=== PATIENT | male | born 1980 | race Caucasian/White ===

== ENCOUNTER 2022-03-02 22:09 | Inpatient (IN) | payer MEDICARE ==
[~2022-03-02] VITALS: Ht 170.2 cm; Wt 84.9 kg
--- NOTE | 2022-03-02 22:09 | NUR ---
Patient [facility]IB [facility]. Per report patient was found on the floor only responding to painful stimuli
[2022-03-02] MEDS ORDERED: ETOMIDATE 20 MG/10 ML VIAL IV ONE (22:45)
[2022-03-02] MEDS ORDERED: ROCURONIUM BROMIDE 100 MG in IV NORMAL SALINE 90 ML IV PRN (22:45)
[2022-03-02] MEDS ORDERED: DIVA-78 PO (22:50)
[2022-03-02] MEDS ORDERED: TERA10CA4 PO (22:50)
[2022-03-02] MEDS ORDERED: ATOR10TA PO (22:50)
[2022-03-02] MEDS ORDERED: LEVE500T20 PO (22:50)
[2022-03-02] MEDS ORDERED: PHEN100C4 PO (22:50)
[2022-03-02 23:06] LABS: HEMATOCRIT 45.9 % (36.7-47.1); MEAN CORPUSCULAR HEMOGLOBIN 30.7 uug (23.8-33.4); MEAN CORPUSCULAR VOLUME 87.9 fL (73.0-96.2); PLATELET COUNT (AUTO) 223 K/uL (152-348)
[2022-03-02 23:13] LABS: ETHANOL < 3 MG/DL (0-0)
[2022-03-02 23:15] LABS: CARBON DIOXIDE 28 mmol/L (21-32); CHLORIDE 106 mmol/L (98-107); CREATININE 0.8 mg/dL (0.6-1.3); GLUCOSE 111 mg/dL (74-106); POTASSIUM 3.1 mmol/L (3.5-5.1); UREA NITROGEN, BLOOD 13 mg/dL (7-18)
[2022-03-02 23:22] LABS: ALANINE AMINOTRANSFERASE 29 U/L (16-63); ALKALINE PHOSPHATASE 89 U/L (50-136); ASPARTATE AMINOTRANSFERASE 12 U/L (15-37); BILIRUBIN,DIRECT 0.1 mg/dL (0.0-0.2); BILIRUBIN,TOTAL 0.2 mg/dL (0.2-1.0); TOTAL PROTEIN, SERUM 6.8 g/dL (6.4-8.2)
[2022-03-02 23:23] LABS: ACETAMINOPHEN < 2.0 ug/mL (10-30)
[2022-03-02 23:24] LABS: CREATINE KINASE, TOTAL 194 U/L (39-308)
--- NOTE | 2022-03-02 23:24 | NUR ---
Patient taken to CT
[2022-03-02 23:26] LABS: THYROID STIMULATING HORMONE 0.418 mIU/mL (0.358-3.740)
[2022-03-02] MEDS ORDERED: PROPOFOL 100 ML ONE (23:47)
[2022-03-03] VITALS (20 sets, daily range): BP systolic 84–130; BP diastolic 50–89
[2022-03-03] LABS: *BILIRUBIN,URIN NEGATIVE (NEGATIVE); *BLOOD, URINE NEGATIVE (NEGATIVE); *CLARITY,URINE CLEAR (CLEAR); *COLOR,URINE YELLOW (YELLOW); *KETONES,URINE TRACE (NEGATIVE); *UROBILINOGEN,URINE 0.2 E.U./dl (NORMAL); LEUKOCYTE ESTERASE ,URINE NEGATIVE (NEGATIVE); NITRITE, URINE NEGATIVE (NEGATIVE); PH,URINE 7.5 (5.0-8.0); UGLUCOSE NEGATIVE (NEGATIVE)
[2022-03-03 00:13] LABS: *AMPHETAMINE, URINE NEGATIVE (NEGATIVE); *CANNABINOID, URINE NEGATIVE (NEGATIVE); *COCCAINE, URINE NEGATIVE (NEGATIVE); *OPIATE, URINE NEGATIVE (NEGATIVE); *PHENCYCLIDINE SCREEN,URINE NEGATIVE (NEGATIVE)
--- NOTE | 2022-03-03 00:25 | NUR ---
patient will be admitted to CCU bed [address] Logan Edmondson
[2022-03-03] MEDS ORDERED: MAGNESIUM SULFATE 2 GM in IV DEXTROSE 5% 100 ML IV ONE (00:45)
[2022-03-03] MEDS ORDERED: MAGNESIUM SULFATE/D5W 200 ML ONE (00:51)
[2022-03-03 01:50] LABS: ABG BASE EXCESS 0.7 mmol/L; ABG HCO3 22.4 mmol/L; ABG PCO2 28.7 mmHg (35.0-45.0); ABG SITE LEFT RADIAL; ABG TOTAL HEMOGLOBIN 15.9 G/dL (13.5-18.0); COHb 0.1 % (0.5-1.5); MetHb 0.4 % (0.0-1.5); O2Hb 95.1 % (94.0-97.0); VENT MODE VENT - A/C; VT, ABG 550 mL
[2022-03-03] MEDS ORDERED: levETIRAcetam IV 500 MG in IV DEXTROSE 5% 100 ML IV ONE (02:00)
[2022-03-03] MEDS ORDERED: ONDANSETRON 4 MG/2 ML VIAL IV PRN (02:00)
[2022-03-03] MEDS ORDERED: ACETAMINOPHEN 650 MG/20.3 ML LIQUID UDC NG PRN (02:00)
[2022-03-03] MEDS ORDERED: LACTULOSE 20 G/30 ML LIQUID UDC NG SCH (02:00)
[2022-03-03 02:13] LABS: ABG BASE EXCESS -0.6 mmol/L; ABG PCO2 27.7 mmHg (35.0-45.0); ABG PH 7.497 (7.350-7.450); ABG PO2 150.2 mmHg (75.0-100.0); ABG SITE RIGHT RADIAL; ABG TOTAL HEMOGLOBIN 16.8 G/dL (13.5-18.0); MetHb 0.4 % (0.0-1.5); O2Hb 98.7 % (94.0-97.0); VENT MODE VENT - A/C; VT, ABG 550 mL
[2022-03-03] MEDS: POTASSIUM CHLORIDE 50 ML IV SCH ×3 (02:37→06:04)
--- NOTE | 2022-03-03 02:58 | NUR ---
report given to Bridgette QUIROS
--- NOTE | 2022-03-03 04:33 | NUR ---
Pt. admitted to CCU bed 4 , under care of Dr. Logan Edmondson Belongs List completed Bridgette RN and Yareli RN aware of patient's arrival
--- NOTE | 2022-03-03 04:35 | NUR ---
Patient in from ER. via gurney accompanied by ER. rn. pt. transfer to ICU HR of 54-60, sbp of 125/86, rr 18. Patient noted to restless and with jerky movements, opening eyes and does not follow commands. Propofol running at 15mcg/kg/min titrated for proper sedation.On ventilator A/C of 14, TV 550, and FIO2 of 50%, Peep +5. Neck immobilizer at bedside. IV line to right and left thumb patent and at this moment the last bag of KCL running.
--- NOTE | 2022-03-03 05:00 | NUR ---
Admitting N.P. notified of pt's arrival to the unit and that multiple attempts to establish a better IV access have failed. Orders for picc line placement received. Will endorse if needed.
--- NOTE | 2022-03-03 05:03 | NUR ---
PATIENT WAS INTUBATED AT [address] REDDY WITH SIZE 8.0 ETT AND SECURED AT 24CM LIP. VENT SETTINGS AC 18 VT 550 PEEP +5 100% FiO2. ABG WAS DONE AND RELAYED TO MD WITH NEW ORDER AC 14 VT 550 PEEP +5 50%FiO2. PATIENT WAS THEN TRANSFERRED TO CCU BED 04. WILL CONTINUE TO MONITOR
[2022-03-03] MEDS ORDERED: [UNRECOGNIZED DRUG - REMARK] XX PRN (06:15)
[2022-03-03] MEDS: ENOXAPARIN SODIUM 40 MG/0.4 ML DISP.SYRIN SQ SCH (06:16)
[2022-03-03] MEDS: IV D5 1/2 NS 1000 ML 1,000 ML IV PRN ×2 (06:24→20:07)
[2022-03-03] MEDS ORDERED: levETIRAcetam 500 MG/5 ML VIAL IV ONE (06:30)
[2022-03-03 06:45] LABS: HEMATOCRIT 44.8 % (36.7-47.1); MEAN CORPUSCULAR HEMOGLOBIN 31.3 uug (23.8-33.4); MEAN CORPUSCULAR VOLUME 87.7 fL (73.0-96.2); PLATELET COUNT (AUTO) 198 K/uL (152-348)
[2022-03-03 07:00] LABS: CREATININE 0.7 mg/dL (0.6-1.3); MAGNESIUM 2.6 mg/dL (1.8-2.4); POTASSIUM 3.7 mmol/L (3.5-5.1)
[2022-03-03] MEDS: PROPOFOL 100 ML IV PRN ×4 (07:54→22:23)
[2022-03-03] MEDS ORDERED: DIVALPROEX 500 MG TABLET.DR PO SCH (09:00)
[2022-03-03] MEDS ORDERED: levETIRAcetam 500 MG TABLET PO SCH (09:00)
[2022-03-03] MEDS ORDERED: PHENYTOIN SODIUM EXTENDED 100 MG CAPSULE.SA PO SCH (09:00)
[2022-03-03] MEDS: LACTULOSE 20 G/30 ML LIQUID UDC GT SCH ×3 (09:25→16:46)
[2022-03-03] MEDS: PANTOPRAZOLE ORAL SUSPENSION 40 MG SUSPDR.PKT GT SCH (09:25)
[2022-03-03] MEDS: PHENYTOIN 100 MG/4 ML UDC GT SCH ×2 (09:26→16:47)
[2022-03-03] MEDS: VALPROIC ACID 250 MG/5 ML LIQUID UDC GT SCH ×2 (09:26→12:37)
[2022-03-03] MEDS: levETIRAcetam 500 MG/5 ML LIQUID UDC GT SCH ×4 (09:26→20:06)
[2022-03-03] MEDS: REMEDY ESSENTIAL ZINC PASTE 113 GM TP PRN (09:29)
[2022-03-03] MEDS: LEVOCARNITINE 330 MG TABLET NG SCH ×2 (13:45→16:49)
[2022-03-03] MEDS ORDERED: BENZ1TAB7 PO (16:23)
[2022-03-03] MEDS ORDERED: QUET25TA PO (16:23)
[2022-03-03] MEDS: ACETAMINOPHEN 650 MG/20.3 ML LIQUID UDC GT PRN ×2 (16:47→23:30)
[2022-03-03] MEDS ORDERED: BUMETANIDE INJ 4 MG in IV DEXTROSE 5% 34 ML IV ONE ×2 (17:00→18:00)
[2022-03-03] MEDS ORDERED: VALPROIC ACID 250 MG/5 ML LIQUID UDC GT SCH (17:00)
[2022-03-03] MEDS ORDERED: DEXTROSE 5% IV ONE (18:00)
[2022-03-03] MEDS ORDERED: BUMETANIDE IV ONE (18:00)
--- NOTE | 2022-03-03 18:27 | NUR ---
Patient underwent EEG today, insertion of IJ line followed up by chest xray. Results called to Dr. Nesbitt and notified him of low urine output, and patient is to receive bumex IV drip at this time. Dr. Millan saw patient and new orders received for keppra increase and depakote discontinuation. Patient unable to tolerate vent settings with fio2 of 30% and was increased to 35%.
--- NOTE | 2022-03-03 19:00 | NUR ---
Received report. Patient is sedated, responsive to painful stimuli, gag and cough reflex noted. NSR on the monitor, HR 80, BP 128/87. ET 8, LL23 hooked to vent with settings of AC 14, TV 500, PEEP 5, FiO2 35%. Oral suctioning done every 2 hours. Turn and repositioned every 2 hours. NG tube intact, patent and clamped. IV L thumb 18G, R thumb 20G SL patent and flushed, R IJ TLC with ongoing Propofol @25mcg/kg/min, D5 1/2NS@75mls/hr. Downs catheter draining well to gravity. Will continue to monitor closely.
[2022-03-03] MEDS: ATORVASTATIN 10 MG TABLET GT SCH (20:06)
[2022-03-03] MEDS: TERAZOSIN 5 MG CAPSULE PO SCH (20:06)
--- NOTE | 2022-03-03 20:24 | NUR ---
Asael Osorio called, report given.
--- NOTE | 2022-03-03 21:35 | NUR ---
PATIENT ON CONT MICHELLE VENT WITH 8.0 ET/TUBE IN PLACE AND SECURED WITH ANCHOR FAST, AND ROTATE Q2 HOURS, SUCTIONED LIGHT PALE YELL TINGE SECRETIONS, AND SUCTION MOUTH WITH YANKAUER, PT IS SEDATED, CURRENT VENT SETTINGS, A/C 14, VT 500ML, PEEP5, FIO2 @ 30%, PT WITH MOSTLY CONTROLLED VENTILATION, CHECK BALLOON ON ET/TUBE, NO VENT CHANGES MADE.Felix BOYKIN RCP Addendum: 03/03/22 at 2138 by VERENA BOYKIN RT Amended: Links added.
[2022-03-04] VITALS (24 sets, daily range): BP systolic 105–139; BP diastolic 71–86
--- NOTE | 2022-03-04 02:00 | NUR ---
AM care done. Linen changed.
[2022-03-04] MEDS: PROPOFOL 100 ML IV PRN ×4 (05:05→21:45)
[2022-03-04 05:27] LABS: HEMATOCRIT 42.9 % (36.7-47.1); MEAN CORPUSCULAR HEMOGLOBIN 30.7 uug (23.8-33.4); MEAN CORPUSCULAR VOLUME 87.8 fL (73.0-96.2); PLATELET COUNT (AUTO) 199 K/uL (152-348)
[2022-03-04 05:50] LABS: ABG BASE EXCESS -0.1 mmol/L; ABG HCO3 22.2 mmol/L; ABG PCO2 30.3 mmHg (35.0-45.0); ABG PH 7.482 (7.350-7.450); ABG PO2 89.2 mmHg (75.0-100.0); ABG SITE LEFT RADIAL; COHb 0.3 % (0.5-1.5); MetHb 0.3 % (0.0-1.5); O2Hb 96.9 % (94.0-97.0); VENT MODE VENT - A/C; VT, ABG 500 mL
[2022-03-04 06:01] LABS: BILIRUBIN,TOTAL 0.6 mg/dL (0.2-1.0); CREATININE 0.9 mg/dL (0.6-1.3); MAGNESIUM 1.8 mg/dL (1.8-2.4); POTASSIUM 3.1 mmol/L (3.5-5.1); TOTAL PROTEIN, SERUM 6.5 g/dL (6.4-8.2)
[2022-03-04] MEDS: PHENYTOIN 100 MG/4 ML UDC GT SCH ×2 (08:34→16:46)
[2022-03-04] MEDS: levETIRAcetam 500 MG/5 ML LIQUID UDC GT SCH ×2 (08:34→21:38)
[2022-03-04] MEDS: LACTULOSE 20 G/30 ML LIQUID UDC GT SCH ×3 (08:34→16:46)
[2022-03-04] MEDS: LEVOCARNITINE 330 MG TABLET NG SCH ×3 (08:35→16:46)
[2022-03-04] MEDS: PANTOPRAZOLE ORAL SUSPENSION 40 MG SUSPDR.PKT GT SCH (08:35)
[2022-03-04] MEDS: ENOXAPARIN SODIUM 40 MG/0.4 ML DISP.SYRIN SQ SCH (08:35)
[2022-03-04] MEDS ORDERED: POTASSIUM CHLORIDE 20 MEQ POWDER PACKET GT ONE (09:30)
[2022-03-04] MEDS ORDERED: BUMETANIDE 1 MG/4 ML VIAL IV ONE (09:45)
[2022-03-04] MEDS: POTASSIUM CHLORIDE 50 ML IV SCH ×4 (09:51→12:25)
[2022-03-04] MEDS: IV D5 1/2 NS 1000 ML 1,000 ML IV PRN ×2 (09:54→23:50)
[2022-03-04] MEDS ORDERED: POTASSIUM CHLORIDE 20 MEQ TAB.PRT.SR PO SCH (12:00)
[2022-03-04 12:53] LABS: ABG BASE EXCESS 4.5 mmol/L; ABG HCO3 28.2 mmol/L; ABG PH 7.477 (7.350-7.450); ABG PO2 61.7 mmHg (75.0-100.0); ABG SITE RIGHT RADIAL; COHb 0.6 % (0.5-1.5); MetHb 0.2 % (0.0-1.5); O2Hb 92.7 % (94.0-97.0); VENT MODE VENT - CPAP
[2022-03-04] MEDS ORDERED: SUCCINYLCHOLINE CHLORIDE 200 MG/10 ML VIAL MC ONE (13:12)
[2022-03-04] MEDS ORDERED: ETOMIDATE 20 MG/10 ML VIAL MC ONE (13:12)
[2022-03-04] MEDS ORDERED: ROCURONIUM BROMIDE 50 MG/5 ML VIAL IV ONE (13:12)
--- NOTE | 2022-03-04 19:01 | NUR ---
Patient not alert enough during weaning trial to extubate. Patient tolerated bath and continues to be on A/C mode on the ventilator with diprivan 35mcg/kg/min.
[2022-03-04] MEDS ORDERED: FLEET ENEMA 133 ML BOTTLE RC ONE (21:00)
--- NOTE | 2022-03-04 21:31 | NUR ---
called nursing mailhouse operator patient needs to be started on Osmolite tube feeding .
--- NOTE | 2022-03-04 21:37 | NUR ---
fleet enema given no bm only gas . will continue to monitor bm.
[2022-03-04] MEDS: TERAZOSIN 5 MG CAPSULE PO SCH (21:38)
[2022-03-04] MEDS: ATORVASTATIN 10 MG TABLET GT SCH (21:39)
[2022-03-04] MEDS: OSMOLITE 1.2 CAL 1,000 ML LIQUID GT PRN (21:42)
--- NOTE | 2022-03-04 21:42 | NUR ---
started Osmolite tf at 30 ml/hr via the NGT to increase as tolerated goal of 60 ml/hr .
--- NOTE | 2022-03-04 22:00 | NUR ---
notice patient moving bilateral lower and upper extremities ,at times noted left arm reaching to tube increase propofol drip see emar .
[2022-03-05] VITALS (25 sets, daily range): BP systolic 115–130; BP diastolic 68–85
--- NOTE | 2022-03-05 | NUR ---
AM care done. Filomena espinoza. Addendum: 03/06/22 at 0143 by Lanie Mondragon RN Wrong date and time.
--- NOTE | 2022-03-05 | NUR ---
tolerating tube feedings increase to 40 ml/hr ,flushed with water.
--- NOTE | 2022-03-05 00:13 | NUR ---
PATIENT ON CONT MICHELLE VENT WITH 8.0 ET/TUBE IN PLACE AND SECURED, WITH ANCHOR FAST, MOVE ET/TUBE Q2 HOURS, SETTINGS ,A/C 14, 500ML, PEEP5, FIO2 @ 30%, PT DOES ASSIST AT TIMES, SUCTIONED LIGHT PALE YELL TINGE SECRETIONS, AND SUCTION MOUTH WITH YANKAUER, TOLL WELL, CHANGE HME, ALL VENT ALARMS GOOD, NO VENT CHANGES MADE. Felix BOYKIN RCP Addendum: 03/05/22 at 0016 by VERENA BOYKIN RT Amended: Links added.
--- NOTE | 2022-03-05 01:10 | NUR ---
transported patient to cat scan via bed with heart monitor ,xray flight readiness technician and respiratory therapist .patient tolerated test .
[2022-03-05] MEDS: PROPOFOL 100 ML IV PRN ×5 (02:46→21:42)
--- NOTE | 2022-03-05 07:45 | NUR ---
patient had a large yellowish liquid stool ,with angiography nurse changed soiled linens and gown,turned and reposition patient . offloaded back with pillows .
[2022-03-05 08:12] LABS: HEMATOCRIT 39.6 % (36.7-47.1); MEAN CORPUSCULAR HEMOGLOBIN 31.3 uug (23.8-33.4); MEAN CORPUSCULAR VOLUME 87.9 fL (73.0-96.2); PLATELET COUNT (AUTO) 156 K/uL (152-348)
[2022-03-05 08:20] LABS: CREATININE 0.7 mg/dL (0.6-1.3); MAGNESIUM 1.8 mg/dL (1.8-2.4); PHOSPHOROUS 3.6 mg/dL (2.5-4.9); POTASSIUM 3.1 mmol/L (3.5-5.1)
[2022-03-05] MEDS: PHENYTOIN 100 MG/4 ML UDC GT SCH ×2 (08:20→16:22)
[2022-03-05] MEDS: levETIRAcetam 500 MG/5 ML LIQUID UDC GT SCH ×2 (08:20→20:03)
[2022-03-05] MEDS: LACTULOSE 20 G/30 ML LIQUID UDC GT SCH ×3 (08:20→16:23)
[2022-03-05] MEDS: LEVOCARNITINE 330 MG TABLET NG SCH ×2 (08:21→12:06)
[2022-03-05] MEDS: BENZTROPINE MESYLATE 1 MG TABLET PO SCH ×2 (08:22→16:20)
[2022-03-05] MEDS: QUETIAPINE FUMARATE 25 MG TABLET PO SCH ×4 (08:23→20:03)
[2022-03-05] MEDS: PANTOPRAZOLE ORAL SUSPENSION 40 MG SUSPDR.PKT GT SCH (08:23)
[2022-03-05] MEDS: ENOXAPARIN SODIUM 40 MG/0.4 ML DISP.SYRIN SQ SCH (08:24)
[2022-03-05] MEDS: OSMOLITE 1.2 CAL 1,000 ML LIQUID GT PRN (08:30)
--- NOTE | 2022-03-05 08:43 | NUR ---
tolerating tube feedings Osmolite at 40ml/hr now increase to 50 ml/hr goal of 60 ml/hr . hob up aspiration precaution observed .
[2022-03-05] MEDS ORDERED: VALPROIC ACID 250 MG/5 ML LIQUID UDC GT SCH (09:00)
[2022-03-05] MEDS ORDERED: POTASSIUM CHLORIDE 20 MEQ POWDER PACKET GT ONE (09:15)
--- NOTE | 2022-03-05 09:54 | NUR ---
potassium 3.1 L ,given potassium 40 radha via the ngt .
--- NOTE | 2022-03-05 10:00 | NUR ---
DR ERNST CAME PULMONARY MD ,updated md with patient condition ,v/s ,vent settings ,with orders for cta and abg .
[2022-03-05] MEDS ORDERED: PIPERACILLIN SODIUM/TAZOBACTAM 3.375 G in IV DEXTROSE 5% 50 ML IV SCH (10:15)
--- NOTE | 2022-03-05 10:42 | NUR ---
called patients conservator and spoked with jhony shah .cats can questioner answered and consent obtained signed with another RN .
[2022-03-05] MEDS: MEROPENEM 1 G in IV NORMAL SALINE 100 ML IV SCH ×2 (11:19→19:59)
[2022-03-05 11:37] LABS: ABG BASE EXCESS 4.4 mmol/L; ABG PCO2 38.2 mmHg (35.0-45.0); ABG PH 7.483 (7.350-7.450); ABG PO2 121.6 mmHg (75.0-100.0); ABG SITE LEFT RADIAL; ABG TOTAL HEMOGLOBIN 14.5 G/dL (13.5-18.0); COHb 0.7 % (0.5-1.5); MetHb 0.2 % (0.0-1.5); O2Hb 97.9 % (94.0-97.0); VENT MODE VENT - A/C; VT, ABG 500 mL
[2022-03-05] MEDS: IV D5 1/2 NS 1000 ML 1,000 ML IV PRN (11:49)
--- NOTE | 2022-03-05 12:30 | NUR ---
KIKA TANNER CAME AND SAW PATIENT .
[2022-03-05] MEDS ORDERED: IV NORMAL SALINE 250 ML IV ONE (12:52)
[2022-03-05] MEDS ORDERED: SWABABLE VALVE TRANSFER SET EA MC ONE (12:52)
[2022-03-05] MEDS ORDERED: IOHEXOL 350 100 ML INFUS..BTL ONE (12:52)
[2022-03-05] MEDS: POTASSIUM CHLORIDE 50 ML IV SCH ×2 (13:54→14:26)
--- NOTE | 2022-03-05 14:30 | NUR ---
changed soiled linens and gown patient had large liquid yellowish stool .
--- NOTE | 2022-03-05 19:00 | NUR ---
Received report. Patient is sedated with Propofol @45mcg/kg/min, grimacing noted upon suctioning, ET 8, LL 23, vent settings AC 14, TV 500, PEEP 5, FiO2 30%, O2 sat 97%. Suctioning and oral care done every 2 hours. NSR on the monitor, HR 89, BP 120/77. NG TF Osmolite @60mls/hr, no gastric residual noted. IV RIJ TLC patent and flushed with ongoing D5 1/2 NS @75mls/hr. Downs catheter draining well to gravity. Will continue to monitor closely.
[2022-03-05] MEDS: ATORVASTATIN 10 MG TABLET GT SCH (20:01)
[2022-03-05] MEDS: TERAZOSIN 5 MG CAPSULE PO SCH (20:02)
[2022-03-05] MEDS: ACETAMINOPHEN 650 MG/20.3 ML LIQUID UDC GT PRN (20:05)
--- NOTE | 2022-03-05 21:08 | NUR ---
Christy Osorio called, report given.
[2022-03-06] VITALS (23 sets, daily range): BP systolic 93–134; BP diastolic 41–80
--- NOTE | 2022-03-06 | NUR ---
AM care done and linen changed.
[2022-03-06] MEDS: PROPOFOL 100 ML IV PRN ×6 (01:32→21:22)
--- NOTE | 2022-03-06 01:55 | NUR ---
SEDATION VACATION NOTES 0155 Turned off Propofol. After 5 mins, patient slowly opened his eyes. VS HR 104, BP 123/80 O2 sat 93%, RR 20. No labored breathing noted. NAD. After 10 mins, patient is able to see and hear this repairer typewriter's voice by nodding his head. After 15 mins, tracking of eyes noted. After 20 mins, patient is able to move his BUE and clenched fist. After 30 mins, grimacing and yawning noted, VS HR 104, BP 116/68, O2 sat 92% RR 19. No labored breathing noted. NAD. Turned back on Propofol @50mcg/kg/min. Will continue to monitor closely.
[2022-03-06] MEDS: OSMOLITE 1.2 CAL 1,000 ML LIQUID GT PRN (03:09)
[2022-03-06] MEDS: ACETAMINOPHEN 650 MG/20.3 ML LIQUID UDC GT PRN (03:47)
[2022-03-06] MEDS: MEROPENEM 1 G in IV NORMAL SALINE 100 ML IV SCH ×3 (03:51→19:42)
[2022-03-06 05:04] LABS: HEMATOCRIT 36.4 % (36.7-47.1); MEAN CORPUSCULAR VOLUME 87.2 fL (73.0-96.2); PLATELET COUNT (AUTO) 160 K/uL (152-348)
[2022-03-06 05:51] LABS: CREATININE 0.7 mg/dL (0.6-1.3); MAGNESIUM 1.7 mg/dL (1.8-2.4); PHOSPHOROUS 3.1 mg/dL (2.5-4.9)
--- NOTE | 2022-03-06 08:00 | NUR ---
Transported patient from CCU 3 to ER 1A via hospital bed, attached to transport air sampling and monitoring, accompanied by 3 staff members, without any incident. VSS. VELAZQUEZ.
[2022-03-06] MEDS ORDERED: ENOXAPARIN SODIUM 40 MG/0.4 ML DISP.SYRIN SQ ONE (09:14)
[2022-03-06] MEDS ORDERED: LACTULOSE 20 G/30 ML LIQUID UDC ONE ×3 (09:14→16:23)
[2022-03-06] MEDS ORDERED: BENZTROPINE MESYLATE 0.5 MG TABLET ONE ×2 (09:14→16:23)
[2022-03-06] MEDS ORDERED: QUETIAPINE FUMARATE 25 MG TABLET ONE ×4 (09:15→20:01)
[2022-03-06] MEDS ORDERED: PROPOFOL 100 ML ONE ×4 (09:54→21:01)
[2022-03-06] MEDS: LACTULOSE 20 G/30 ML LIQUID UDC GT SCH ×3 (09:58→16:29)
[2022-03-06] MEDS: PHENYTOIN 100 MG/4 ML UDC GT SCH ×2 (09:58→17:41)
[2022-03-06] MEDS: QUETIAPINE FUMARATE 25 MG TABLET PO SCH ×4 (09:59→20:28)
[2022-03-06] MEDS: ENOXAPARIN SODIUM 40 MG/0.4 ML DISP.SYRIN SQ SCH (10:00)
[2022-03-06] MEDS: BENZTROPINE MESYLATE 1 MG TABLET PO SCH ×2 (10:04→16:33)
[2022-03-06] MEDS: levETIRAcetam 500 MG/5 ML LIQUID UDC GT SCH ×2 (10:20→20:28)
[2022-03-06] MEDS: PANTOPRAZOLE ORAL SUSPENSION 40 MG SUSPDR.PKT GT SCH (10:36)
[2022-03-06] MEDS: REMEDY ESSENTIAL ZINC PASTE 113 GM TP PRN (10:36)
[2022-03-06] MEDS: IV D5 1/2 NS 1000 ML 1,000 ML IV PRN (10:42)
[2022-03-06] MEDS ORDERED: MAGNESIUM OXIDE 400 MG TABLET GT ONE (11:00)
[2022-03-06] MEDS ORDERED: MAGNESIUM OXIDE 400 MG TABLET ONE (11:43)
[2022-03-06] MEDS: POTASSIUM CHLORIDE 20 MEQ POWDER PACKET GT SCH ×3 (11:44→16:29)
[2022-03-06] MEDS ORDERED: POTASSIUM CHLORIDE 20 MEQ POWDER PACKET ONE ×3 (11:44→16:23)
--- NOTE | 2022-03-06 18:18 | NUR ---
0821am: 1st contact with patient: patient came from 2nd floor-CCU to ER department secondary to CCU staffing issues. ER nursing staff will take care of this patient for the meantime. Patient is sedated, orally intubated connected to ventilator, current ventilator parameter: AC, rate=14/min, tidal mlsxsb=546, FiO2=30%, PEEP=5. Patient is afebrile, skin warm & dry. Moderate amount of oral secretions seen. Suctioned accordingly. 1240pm: Bureau Director@bedside. 1604pm: SHIRA Swartz is here in ER.
[2022-03-06] MEDS ORDERED: TERAZOSIN 5 MG CAPSULE ONE (20:01)
[2022-03-06] MEDS: ATORVASTATIN 10 MG TABLET GT SCH (20:26)
[2022-03-06] MEDS: TERAZOSIN 5 MG CAPSULE PO SCH (20:28)
--- NOTE | 2022-03-06 23:00 | NUR ---
Calm and relax, sedated. Propofol drip decreased to 40 mcg/kg/miin. Closely monitored.
[2022-03-07] VITALS (24 sets, daily range): BP systolic 92–114; BP diastolic 50–75
[2022-03-07] MEDS ORDERED: PROPOFOL 100 ML ONE ×5 (00:47→16:57)
[2022-03-07] MEDS: PROPOFOL 100 ML IV PRN ×6 (00:48→23:46)
--- NOTE | 2022-03-07 03:00 | NUR ---
Pt awake and agitated, safety precaution maintained. Diprivan drip titrated for sedation.
[2022-03-07] MEDS: MEROPENEM 1 G in IV NORMAL SALINE 100 ML IV SCH ×3 (03:50→20:49)
[2022-03-07] MEDS: IV D5 1/2 NS 1000 ML 1,000 ML IV PRN (04:37)
[2022-03-07 06:05] LABS: HEMATOCRIT 37.1 % (36.7-47.1); MEAN CORPUSCULAR HEMOGLOBIN 31.3 uug (23.8-33.4); MEAN CORPUSCULAR VOLUME 90.3 fL (73.0-96.2); PLATELET COUNT (AUTO) 150 K/uL (152-348)
--- NOTE | 2022-03-07 07:30 | NUR ---
received report on pt, AMS, intubated and sedated, propofol running at 50, TV:500, AC:14, FiO2: 30%, Peep 5, moves upper extremities, opens eyes spontaneously, no tracking, NG tube in R nare, feeding osmolite 1.2 at goal of 60cc.
[2022-03-07] MEDS ORDERED: QUETIAPINE FUMARATE 25 MG TABLET ONE ×3 (08:49→16:58)
[2022-03-07] MEDS ORDERED: LACTULOSE 20 G/30 ML LIQUID UDC ONE ×3 (08:49→16:57)
[2022-03-07] MEDS ORDERED: ENOXAPARIN SODIUM 40 MG/0.4 ML DISP.SYRIN SQ ONE (08:49)
[2022-03-07] MEDS: QUETIAPINE FUMARATE 25 MG TABLET PO SCH ×4 (09:13→20:55)
[2022-03-07] MEDS: PHENYTOIN 100 MG/4 ML UDC GT SCH ×2 (09:13→17:24)
[2022-03-07] MEDS: PANTOPRAZOLE ORAL SUSPENSION 40 MG SUSPDR.PKT GT SCH (09:13)
[2022-03-07] MEDS: BENZTROPINE MESYLATE 1 MG TABLET PO SCH ×2 (09:13→17:24)
[2022-03-07] MEDS: LACTULOSE 20 G/30 ML LIQUID UDC GT SCH ×3 (09:13→17:24)
[2022-03-07] MEDS: OSMOLITE 1.2 CAL 1,000 ML LIQUID GT PRN (09:14)
[2022-03-07] MEDS: levETIRAcetam 500 MG/5 ML LIQUID UDC GT SCH ×2 (09:14→20:53)
[2022-03-07] MEDS: ENOXAPARIN SODIUM 40 MG/0.4 ML DISP.SYRIN SQ SCH (09:16)
[2022-03-07] MEDS ORDERED: MORPHINE SULFATE 2 MG/1 ML DISP.SYRIN ONE (11:57)
[2022-03-07] MEDS: MORPHINE SULFATE 2 MG/1 ML DISP.SYRIN IV PRN (11:58)
--- NOTE | 2022-03-07 14:35 | NUR ---
RECEIVED STABLE ON CURRENT VENT SETTING. SATURATION RUNS FROM 95 TO 99 %. SUCTIONED NEEDED AND MOVED EE TUBE TO MID CENTER. NO CHANGES ORDERED AT THIS TIME.
[2022-03-07 14:50] LABS: CARBON DIOXIDE 28 mmol/L (21-32); CHLORIDE 103 mmol/L (98-107); CREATININE 0.5 mg/dL (0.6-1.3); GLUCOSE 99 mg/dL (74-106); MAGNESIUM 1.8 mg/dL (1.8-2.4); PHOSPHOROUS 3.5 mg/dL (2.5-4.9); POTASSIUM 3.4 mmol/L (3.5-5.1); TRIGLYCERIDES 152 MG/DL (30-150); UREA NITROGEN, BLOOD 11 mg/dL (7-18)
--- NOTE | 2022-03-07 18:00 | NUR ---
pt transfered to ICU floor with RT, House Sup, and RN.
--- NOTE | 2022-03-07 19:41 | NUR ---
Pt agitated propofol drip ongoing, safety precaution maitained. Will monitor condition closely.
[2022-03-07] MEDS ORDERED: MEROPENEM 1GM/NS 100ML IVPB **ER PYXIS ONLY IV ONE (20:44)
[2022-03-07] MEDS: ATORVASTATIN 10 MG TABLET GT SCH (20:53)
[2022-03-07] MEDS: TERAZOSIN 5 MG CAPSULE PO SCH (20:56)
[2022-03-07] MEDS ORDERED: MEROPENEM 1 G VIAL IV ONE (22:49)
[2022-03-08] VITALS (24 sets, daily range): BP systolic 95–122; BP diastolic 48–74
[2022-03-08] MEDS: IV D5 1/2 NS 1000 ML 1,000 ML IV PRN ×2 (00:59→17:26)
[2022-03-08] MEDS: MEROPENEM 1 G in IV NORMAL SALINE 100 ML IV SCH ×3 (03:06→20:25)
[2022-03-08] MEDS: PROPOFOL 100 ML IV PRN ×6 (03:25→22:29)
--- NOTE | 2022-03-08 07:10 | NUR ---
Received pt. on ventilator ETT 8 23LL, A/C 14, Tv 500, FIO2 30%, and Peep+5. with saturation of 92%. on propofol running at 50mcg/kg/min patient opening eyes spontaneously and does not follow commands. Cardiac-mandel on NSR sbp within desired limits. NG with feeding to be resumed and placement confirmed by auscultation. Downs to gravity. RIJ TLc patent. Will continue to monitor.
--- NOTE | 2022-03-08 07:15 | NUR ---
Pulmonary services Dr. Trejo in the unit and at this time as ordered, propofol turn off completely for weaning trial; with MD at bedside pt. became tachypneic with breathing rate mid to upper 30's. restless, agitated and not following commands. after 15-20 minutes orders to resume propofol at the same rate for proper sedation. vitals stable HR in the upper 90-110. sbp within desire limits. Will continue to monitor.
[2022-03-08 07:28] LABS: CARBON DIOXIDE 26 mmol/L (21-32); CHLORIDE 102 mmol/L (98-107); CREATININE 0.5 mg/dL (0.6-1.3); GLUCOSE 100 mg/dL (74-106); MAGNESIUM 1.9 mg/dL (1.8-2.4); PHOSPHOROUS 3.3 mg/dL (2.5-4.9); UREA NITROGEN, BLOOD 8 mg/dL (7-18)
--- NOTE | 2022-03-08 07:33 | NUR ---
Patient received on cont kate vent with given settings of AC RR 14, Vt 500, PEEP +5, 30% Fio2. Oral care done and prn sxn provided. Alarms on and audible. No changes made at this time. Will continue to monitor throughout shift.
[2022-03-08] MEDS: PANTOPRAZOLE ORAL SUSPENSION 40 MG SUSPDR.PKT GT SCH (08:00)
[2022-03-08] MEDS: QUETIAPINE FUMARATE 25 MG TABLET PO SCH ×4 (08:00→20:28)
[2022-03-08] MEDS: LACTULOSE 20 G/30 ML LIQUID UDC GT SCH ×3 (08:00→17:06)
[2022-03-08] MEDS: ENOXAPARIN SODIUM 40 MG/0.4 ML DISP.SYRIN SQ SCH (08:01)
[2022-03-08] MEDS: BENZTROPINE MESYLATE 1 MG TABLET PO SCH ×2 (08:02→17:07)
[2022-03-08] MEDS: PHENYTOIN 100 MG/4 ML UDC GT SCH ×2 (08:03→17:07)
[2022-03-08] MEDS: levETIRAcetam 500 MG/5 ML LIQUID UDC GT SCH ×2 (08:04→20:25)
[2022-03-08] MEDS: LORAZEPAM 2 MG/1 ML VIAL IV PRN (08:14)
[2022-03-08] MEDS: OSMOLITE 1.2 CAL 1,000 ML LIQUID GT PRN (08:22)
[2022-03-08 09:07] LABS: MEAN CORPUSCULAR HEMOGLOBIN 31.2 uug (23.8-33.4); MEAN CORPUSCULAR VOLUME 87.9 fL (73.0-96.2); PLATELET COUNT (AUTO) 227 K/uL (152-348)
[2022-03-08] MEDS: ACETAMINOPHEN 650 MG/20.3 ML LIQUID UDC GT PRN (12:19)
--- NOTE | 2022-03-08 20:00 | NUR ---
patient in be orally intubated ac 14/500/30% +5 peep tolerating vent setting saturation 100% rr 24, patient sedated on propofol drip . failed sedation vacation this am . suction via ett and via oral minimal secretions thin to thick whitish in color . TF in progress Osmolite 1.2 at 60 ml/hr tolerating tube feedings no residual.flexiseal inplaced with yellowish brownish liquid stool .continue to monitor level of sedation and v/s .
[2022-03-08] MEDS: ATORVASTATIN 10 MG TABLET GT SCH (20:25)
[2022-03-08] MEDS: TERAZOSIN 5 MG CAPSULE PO SCH (20:25)
--- NOTE | 2022-03-08 20:45 | NUR ---
due medication given crushed medication and given via ngt ,flushed ngt with water aspiration precaution observed .hob up .
--- NOTE | 2022-03-08 22:30 | NUR ---
turned and reposition patient, patient noted opening eyes spontaneously on and off able to moved bilateral upper and lower extremities slow and weak .patient doesn't follow commands continue with propofol for sedation .on and off advised patient to put his hands down and not to pull or removed ett tube.
[2022-03-09] VITALS (24 sets, daily range): BP systolic 94–115; BP diastolic 48–68
--- NOTE | 2022-03-09 01:00 | NUR ---
suction patient via ett and via mouth .oral care done .applied Vaseline to upper and lower lips area .
[2022-03-09] MEDS: PROPOFOL 100 ML IV PRN ×7 (01:01→22:06)
[2022-03-09] MEDS: REMEDY ESSENTIAL ZINC PASTE 113 GM TP PRN (03:30)
--- NOTE | 2022-03-09 03:30 | NUR ---
bath patient and changed soiled linens and gown ,applied z guard to bilateral groin and sacral area ,placed mepiles to sacral area . turned and reposition patient ,elevated bue and ble with pillows heels off bed .scds used . hob up .
[2022-03-09] MEDS: MEROPENEM 1 G in IV NORMAL SALINE 100 ML IV SCH ×3 (04:07→20:15)
--- NOTE | 2022-03-09 04:15 | NUR ---
senior program analyst at b/s for patients am labs .
[2022-03-09 05:53] LABS: HEMATOCRIT 38.4 % (36.7-47.1); MEAN CORPUSCULAR HEMOGLOBIN 31.4 uug (23.8-33.4); MEAN CORPUSCULAR VOLUME 88.2 fL (73.0-96.2); PLATELET COUNT (AUTO) 258 K/uL (152-348)
--- NOTE | 2022-03-09 06:00 | NUR ---
changed flexiseal bag ,patient had liquid stool total of 400 ml.
[2022-03-09 06:01] LABS: CARBON DIOXIDE 30 mmol/L (21-32); CHLORIDE 102 mmol/L (98-107); CREATININE 0.5 mg/dL (0.6-1.3); GLUCOSE 102 mg/dL (74-106); PHOSPHOROUS 3.4 mg/dL (2.5-4.9); POTASSIUM 3.7 mmol/L (3.5-5.1); UREA NITROGEN, BLOOD 7 mg/dL (7-18)
[2022-03-09] MEDS: IV D5 1/2 NS 1000 ML 1,000 ML IV PRN ×2 (06:25→17:19)
--- NOTE | 2022-03-09 07:00 | NUR ---
Received pt. on ventilator A/c14, Tv500 Peep +5, FIO2 30%. no tachypnea adequately sedated. Cardiac-mandel pt. on NSR with sbp within desired limits no support of vasopressors. NG-T with placement confirmed and feeding to be resumed as ordered. Downs to gravity IV line patent. Rectal tube in place.
--- NOTE | 2022-03-09 07:56 | NUR ---
RECEIVED PT ON ORDERED VENT SETTINGS. ORAL CARE DONE. SX AND CHANGED HME.
[2022-03-09] MEDS: PHENYTOIN 100 MG/4 ML UDC GT SCH ×2 (08:03→16:56)
[2022-03-09] MEDS: LACTULOSE 20 G/30 ML LIQUID UDC GT SCH ×3 (08:03→16:55)
[2022-03-09] MEDS: PANTOPRAZOLE ORAL SUSPENSION 40 MG SUSPDR.PKT GT SCH (08:03)
[2022-03-09] MEDS: BENZTROPINE MESYLATE 1 MG TABLET PO SCH ×2 (08:03→16:57)
[2022-03-09] MEDS: QUETIAPINE FUMARATE 25 MG TABLET PO SCH ×4 (08:03→20:19)
[2022-03-09] MEDS: ENOXAPARIN SODIUM 40 MG/0.4 ML DISP.SYRIN SQ SCH (08:04)
[2022-03-09] MEDS: levETIRAcetam 500 MG/5 ML LIQUID UDC GT SCH ×2 (08:04→20:15)
[2022-03-09] MEDS: OSMOLITE 1.2 CAL 1,000 ML LIQUID GT PRN (08:19)
[2022-03-09 09:47] LABS: BILIRUBIN,DIRECT 0.1 mg/dL (0.0-0.2); BILIRUBIN,TOTAL 0.2 mg/dL (0.2-1.0); TOTAL PROTEIN, SERUM 7.1 g/dL (6.4-8.2)
--- NOTE | 2022-03-09 11:25 | NUR ---
Attending physician Dr. Bro, in the unit to see and examine pt. report given orders to continue with care plan received.
--- NOTE | 2022-03-09 11:36 | NUR ---
A call from Ms. Gustafsonnica pt's conservator at this time she was updated on pt's current condition and was informed of care plan.
[2022-03-09] MEDS: LORAZEPAM 2 MG/1 ML VIAL IV PRN (14:11)
--- NOTE | 2022-03-09 18:55 | NUR ---
Left patient on ventilator with no changes throughout shift saturation above 94%. Neuro-mandel sedated with episodes, of restlessness coughing. Hemodynamically stable, on NSR with sbp within desired limits. NG-T patent with feeding running at goal therapy flexi-seal in place draining watery stool. IV line patent no s/s of complications. No pressure sore areas Will endorse to incoming shift.
--- NOTE | 2022-03-09 20:00 | NUR ---
vented ETT 8.0 /23 vent setting ac 14/500/30% peep of 5 ,suction mild very light thin secretions orally and via ett .hob up and aspiration precaution observed . propofol for sedation for cpap in am at 0600. tf in progress Osmolite at 60 ml/hr via the NGT .FLEXISEAL in placed with liquid stool .
[2022-03-09] MEDS: ATORVASTATIN 10 MG TABLET GT SCH (20:15)
--- NOTE | 2022-03-09 20:15 | NUR ---
crushed medication and medication given via the NGT , flushed with water .
[2022-03-09] MEDS: TERAZOSIN 5 MG CAPSULE PO SCH (20:17)
--- NOTE | 2022-03-09 21:20 | NUR ---
patient sister called and updated with patient condition . informed about our visiting hours .patient sister verbalized that her and her mom will be visiting patient tomorrow sometime at noon .
--- NOTE | 2022-03-09 21:30 | NUR ---
turned and reposition patient off loaded back with pillows bue and ble extremities elevated with pillows . patient on KCI bed and scds used to bilateral heels .
--- NOTE | 2022-03-09 23:55 | NUR ---
PATIENT ON CONT MICHELLE VENT WITH 8.0 ET/TUBE IN PLACED AND SECURED, WITH ANCHOR FAST , ROTATE Q2 HOURS, WITH CURRENT VENT SETTINGS, A/C 14, 500ML, PEEP5, FIO2 @ 30%, NO VENT CHANGES MADE, SUCTIONED VERY LIGHT TINGE SECRETIONS, AND SUCTION MOUTH WITH YANKAUER, CHANGE HME, ALL VENT ALARMS GOOD; TRIAL ON CPAP MODE @ 06:00. Felix BOYKIN RCP Addendum: 03/09/22 at 2357 by VERENA BOYKIN RT Amended: Links added.
[2022-03-10] VITALS (23 sets, daily range): BP systolic 91–118; BP diastolic 49–75
[2022-03-10] MEDS: PROPOFOL 100 ML IV PRN ×8 (01:26→23:27)
--- NOTE | 2022-03-10 03:30 | NUR ---
bath patient ,irrigated rectal tube ,changed soiled linens and gown .Downs care done .oral care done .
[2022-03-10] MEDS: MEROPENEM 1 G in IV NORMAL SALINE 100 ML IV SCH ×3 (04:19→20:14)
[2022-03-10 05:21] LABS: MEAN CORPUSCULAR HEMOGLOBIN 31.5 uug (23.8-33.4); MEAN CORPUSCULAR VOLUME 87.7 fL (73.0-96.2); PLATELET COUNT (AUTO) 244 K/uL (152-348)
[2022-03-10 05:40] LABS: ALANINE AMINOTRANSFERASE 66 U/L (16-63); ALKALINE PHOSPHATASE 113 U/L (50-136); ASPARTATE AMINOTRANSFERASE 36 U/L (15-37); BILIRUBIN,TOTAL 0.1 mg/dL (0.2-1.0); CARBON DIOXIDE 30 mmol/L (21-32); CHLORIDE 103 mmol/L (98-107); CREATININE 0.5 mg/dL (0.6-1.3); GLUCOSE 100 mg/dL (74-106); MAGNESIUM 1.9 mg/dL (1.8-2.4); PHOSPHOROUS 3.2 mg/dL (2.5-4.9); POTASSIUM 3.8 mmol/L (3.5-5.1); TOTAL PROTEIN, SERUM 6.1 g/dL (6.4-8.2); UREA NITROGEN, BLOOD 8 mg/dL (7-18)
--- NOTE | 2022-03-10 05:50 | NUR ---
sedation vacation done hold propofol drip ,respiratory therapist at b/s put patient on CPAP ,with in 2 minutes respiration rate went to 44 to 45 per minute vent keeps on beeping with high respiratory rate alarm ,low volume rate 150.patient squirming and thrashing in bed moved all extremities doesn't follow commands unable to educate .respiratory therapist put patient on previous vent setting .
[2022-03-10] MEDS: MORPHINE SULFATE 2 MG/1 ML DISP.SYRIN IV PRN (05:58)
--- NOTE | 2022-03-10 05:58 | NUR ---
patient still restless and agitated ,facial grimacing noted given prn morphine see emar . .
[2022-03-10] MEDS: IV D5 1/2 NS 1000 ML 1,000 ML IV PRN ×2 (06:24→17:26)
--- NOTE | 2022-03-10 06:37 | NUR ---
PT ON CPAP 8 X 2 MINS. ALREADY ALARMING HIGH RESP. RATE , PT BREATHING RR45 APPROX, PT THEN BACK TO REGULAR VENT SETTINGS, ANI Gonzalez NOTIFIED .Felix BOYKIN RCP Addendum: 03/10/22 at 0641 by VERENA BOYKIN RT Amended: Links added.
--- NOTE | 2022-03-10 07:15 | NUR ---
Received pt. on ventilator A/c14, Tv500 Peep +5, FIO2 30%. no tachypnea at this time pt. slightly restless and not following commands, on propofol at 50mcg/kg/min.. As reported pt. failed weaning trial this morning reports of low volume intake < 150 (per RT report) and tachypnea with rate in the high 30'slow 40's, trial lasted for about 2 minutes before aborting procedure and pt. placed back on A/C mode. Cardiac-mandel pt. on NSR with sbp within desired limits no vasopressors needed it. NG-T with placement confirmed and feeding to be resumed at goal therapy. Downs to gravity IV line patent. Rectal tube in place with watery stool.
--- NOTE | 2022-03-10 07:20 | NUR ---
barboza catheter bag with a total of 1700 cc clear fouzia urine emptied at 0800. Will continue to monitor.
--- NOTE | 2022-03-10 07:20 | NUR ---
CPAP trial in progress for 2nd time. after 5-10 minutes pt. become tachypneic in the low 40's. saturation remains at 95, on NSR with sbp within normal. Patient following commands with episodes of restlessness and agitation and able to node yes and no to close ended questions, and manage to let staff know He's feeling short of breath. Patient placed back ventilator A/C mode.
--- NOTE | 2022-03-10 07:35 | NUR ---
Pulmonary services, Dr. Grant in the unit report given with no new orders received. Will continue with care plan.
[2022-03-10] MEDS: QUETIAPINE FUMARATE 25 MG TABLET PO SCH ×4 (08:12→20:17)
[2022-03-10] MEDS: LACTULOSE 20 G/30 ML LIQUID UDC GT SCH ×3 (08:12→17:23)
[2022-03-10] MEDS: BENZTROPINE MESYLATE 1 MG TABLET PO SCH ×2 (08:13→17:24)
[2022-03-10] MEDS: PHENYTOIN 100 MG/4 ML UDC GT SCH ×2 (08:13→17:25)
[2022-03-10] MEDS: levETIRAcetam 500 MG/5 ML LIQUID UDC GT SCH ×2 (08:14→20:14)
[2022-03-10] MEDS: ENOXAPARIN SODIUM 40 MG/0.4 ML DISP.SYRIN SQ SCH (08:14)
[2022-03-10] MEDS: PANTOPRAZOLE ORAL SUSPENSION 40 MG SUSPDR.PKT GT SCH (08:15)
[2022-03-10] MEDS: OSMOLITE 1.2 CAL 1,000 ML LIQUID GT PRN (08:16)
[2022-03-10] MEDS: LORAZEPAM 2 MG/1 ML VIAL IV PRN ×2 (08:18→21:30)
[2022-03-10] MEDS: ACETAMINOPHEN 650 MG/20.3 ML LIQUID UDC GT PRN (08:18)
[2022-03-10] MEDS ORDERED: PROPOFOL 100 ML IV PRN (09:00)
--- NOTE | 2022-03-10 09:03 | NUR ---
PT remains restless and agitated Public Affairs Manager called and notified orders to titrate propofol above 50mcg/kg/min to achieve adequate sedation received.
--- NOTE | 2022-03-10 18:53 | NUR ---
Left patient on ventilator with no changes throughout shift saturation above 94%. Neuro-mandel adequately sedated with propofol running at 60mcg/kg/min. Hemodynamically stable, on NSR with sbp within desired limits. NG-T patent with feeding running at goal therapy flexi-seal in place draining watery stool. IV line patent no s/s of complications. No pressure sore areas Will endorse to incoming shift.
[2022-03-10] MEDS ORDERED: IV NORMAL SALINE 250 ML IV ONE (19:34)
[2022-03-10] MEDS ORDERED: IOHEXOL 300MG/ML 100 ML INFUS..BTL ONE (19:34)
[2022-03-10] MEDS ORDERED: SWABABLE VALVE TRANSFER SET EA MC ONE (19:34)
--- NOTE | 2022-03-10 19:54 | NUR ---
called patient conservator spoked with SAMANTHA FRANKEL obtained consent for CT of the abdomen /pelvis with IV contrast questionable fluid filled structures witness by another RN
[2022-03-10] MEDS: ATORVASTATIN 10 MG TABLET GT SCH (20:14)
[2022-03-10] MEDS: TERAZOSIN 5 MG CAPSULE PO SCH (20:15)
--- NOTE | 2022-03-10 20:15 | NUR ---
went down via bed with vent for ct of the abdomen /pelvis with RN,RESPIRATORY THERAPIST AND CAT BOYER ASSOCIATE PROJECT MANAGER.
[2022-03-11] VITALS (17 sets, daily range): BP systolic 87–120; BP diastolic 45–90
[2022-03-11] MEDS: PROPOFOL 100 ML IV PRN ×2 (02:24→05:15)
--- NOTE | 2022-03-11 04:30 | NUR ---
AM CARE DONE ,IRRIGATED RECTAL TUBE (FLEXISEAL TUBE) TO KEEP IT PATENT NOTED LIQUID STOOL BROWNISH GREENISH IN COLOR .CHANGED SOILED LINENS AND GOWN .ORAL CARE DONE ,SUCTION VIA ETT AND MOUTH .
[2022-03-11] MEDS: MEROPENEM 1 G in IV NORMAL SALINE 100 ML IV SCH ×3 (04:49→20:55)
[2022-03-11 05:16] LABS: HEMATOCRIT 36.1 % (36.7-47.1); MEAN CORPUSCULAR HEMOGLOBIN 31.2 uug (23.8-33.4); MEAN CORPUSCULAR VOLUME 88.4 fL (73.0-96.2); PLATELET COUNT (AUTO) 257 K/uL (152-348)
[2022-03-11 05:24] LABS: CARBON DIOXIDE 31 mmol/L (21-32); CHLORIDE 102 mmol/L (98-107); CREATININE 0.4 mg/dL (0.6-1.3); GLUCOSE 120 mg/dL (74-106); PHOSPHOROUS 3.9 mg/dL (2.5-4.9); POTASSIUM 3.8 mmol/L (3.5-5.1); UREA NITROGEN, BLOOD 9 mg/dL (7-18)
--- NOTE | 2022-03-11 06:00 | NUR ---
REDUCED PROPOFOL DRIP TO 1/2 OF THE CURRENT RATE 30 MCG/KG/MIN ,RESPIRATORY THERAPIST STARTED PATIENT ON CPAP PSV 8 PATIENT STARTED TO BE MOVING HIS RIGHT AND LEFT HAND REACHING TO THE ETT TUBE ,IMPLEMENTED RIGHT AND LEFT SOFT MITTENS . PATIENT TOLERATING CPAP FOR NOW RR 20 SATURATION 95 %.
[2022-03-11 06:40] LABS: ABG BASE EXCESS 4.1 mmol/L; ABG HCO3 28.5 mmol/L; ABG PCO2 42.3 mmHg (35.0-45.0); ABG PH 7.447 (7.350-7.450); ABG PO2 67.6 mmHg (75.0-100.0); ABG SITE RIGHT BRACHIAL; ABG TOTAL HEMOGLOBIN 13.7 G/dL (13.5-18.0); COHb 0.3 % (0.5-1.5); CPAP,BG 8 cmH20; MetHb 0.3 % (0.0-1.5); O2Hb 93.9 % (94.0-97.0); VENT MODE CPAP
--- NOTE | 2022-03-11 06:40 | NUR ---
RESPIRATORY THERAPIST DID ABG ,WILL SHOW RESULTS TO MD ARBOLEDA .
[2022-03-11] MEDS ORDERED: DC PROPOFOL ONCE EXTUBATED XX PRN (07:45)
[2022-03-11] MEDS: levETIRAcetam 500 MG/5 ML LIQUID UDC GT SCH ×2 (09:28→20:56)
[2022-03-11] MEDS: LACTULOSE 20 G/30 ML LIQUID UDC GT SCH ×3 (09:28→17:01)
[2022-03-11] MEDS: PANTOPRAZOLE ORAL SUSPENSION 40 MG SUSPDR.PKT GT SCH (09:28)
[2022-03-11] MEDS: BENZTROPINE MESYLATE 1 MG TABLET PO SCH ×2 (09:29→17:03)
[2022-03-11] MEDS: PHENYTOIN 100 MG/4 ML UDC GT SCH ×2 (09:29→17:01)
[2022-03-11] MEDS: ENOXAPARIN SODIUM 40 MG/0.4 ML DISP.SYRIN SQ SCH (09:30)
[2022-03-11] MEDS: IV D5 1/2 NS 1000 ML 1,000 ML IV PRN (09:42)
[2022-03-11] MEDS: QUETIAPINE FUMARATE 25 MG TABLET PO SCH ×4 (09:52→21:26)
[2022-03-11] MEDS: OSMOLITE 1.2 CAL 1,000 ML LIQUID GT PRN (13:52)
--- NOTE | 2022-03-11 20:00 | NUR ---
Assume care of patient. Patient received inbed awake alert and oriented times three. Pt is os Os via nasal canula. HOB. Tolerating oxygem. No distress. Pt is in no distress.
[2022-03-11] MEDS: ATORVASTATIN 10 MG TABLET GT SCH (21:06)
[2022-03-11] MEDS: TERAZOSIN 5 MG CAPSULE PO SCH (21:07)
[2022-03-11] MEDS: ACETAMINOPHEN 650 MG/20.3 ML LIQUID UDC GT PRN (21:11)
[2022-03-12] VITALS (19 sets, daily range): BP systolic 98–129; BP diastolic 50–87
[2022-03-12] MEDS: IV D5 1/2 NS 1000 ML 1,000 ML IV PRN ×2 (02:16→18:11)
--- NOTE | 2022-03-12 04:00 | NUR ---
Bed bath given R tlc dressing. Right TLC loosened, Dressing Changed per protocol.
[2022-03-12] MEDS: MORPHINE SULFATE 2 MG/1 ML DISP.SYRIN IV PRN (05:03)
[2022-03-12] MEDS: MEROPENEM 1 G in IV NORMAL SALINE 100 ML IV SCH ×2 (05:03→11:43)
[2022-03-12 05:24] LABS: HEMATOCRIT 35.3 % (36.7-47.1); MEAN CORPUSCULAR HEMOGLOBIN 31.1 uug (23.8-33.4); MEAN CORPUSCULAR VOLUME 87.6 fL (73.0-96.2); PLATELET COUNT (AUTO) 258 K/uL (152-348)
[2022-03-12 05:33] LABS: CARBON DIOXIDE 31 mmol/L (21-32); CHLORIDE 101 mmol/L (98-107); CREATININE 0.4 mg/dL (0.6-1.3); GLUCOSE 118 mg/dL (74-106); MAGNESIUM 1.7 mg/dL (1.8-2.4); PHOSPHOROUS 3.7 mg/dL (2.5-4.9); POTASSIUM 3.7 mmol/L (3.5-5.1); UREA NITROGEN, BLOOD 10 mg/dL (7-18)
[2022-03-12 06:23] LABS: ABG BASE EXCESS 4.7 mmol/L; ABG HCO3 29.9 mmol/L; ABG PCO2 46.6 mmHg (35.0-45.0); ABG PH 7.425 (7.350-7.450); ABG SITE RIGHT RADIAL; ABG TOTAL HEMOGLOBIN 13.7 G/dL (13.5-18.0); COHb 0.4 % (0.5-1.5); MetHb 0.2 % (0.0-1.5); VENT MODE Nasal Cannula
[2022-03-12] MEDS: PANTOPRAZOLE ORAL SUSPENSION 40 MG SUSPDR.PKT GT SCH (07:20)
--- NOTE | 2022-03-12 07:30 | NUR ---
Hands off care of patient Report endorsed to morning nurse, Patient is awake alert an oriented and is in no distress.
--- NOTE | 2022-03-12 08:00 | NUR ---
Received patient awake alert and oriented x 2-3. Denies pain. On O2 5L NC. NGT in place on the right nare, tolerating feeding well. Mittens to prevent disrupting care. Right IJ in place, remains patent and intact. [facility] assessment done, no new skin issues noted. Urethral cath draining fouzia color urine. Safety initiated. Will continue to monitor.
--- NOTE | 2022-03-12 08:12 | NUR ---
pt is resting in bed. Respis even and unlabored. Released restrainte per the protocol B/L hanss edematous. Elevated on pillows. Downs cath to gravity and is draining clear yellow urine.
--- NOTE | 2022-03-12 08:15 | NUR ---
2300 Pt is awake. Resp is ulabored. Released restraints per protocol.PT is coorperative. Tolerating tubefeed. No residual.
--- NOTE | 2022-03-12 08:15 | NUR ---
Was seen by speech therapy, recommendations made- pureed, thin liquid diet. Informed MD. Will continue to monitor.
[2022-03-12] MEDS: LACTULOSE 20 G/30 ML LIQUID UDC GT SCH ×3 (10:17→18:10)
[2022-03-12] MEDS: ENOXAPARIN SODIUM 40 MG/0.4 ML DISP.SYRIN SQ SCH (10:18)
[2022-03-12] MEDS: QUETIAPINE FUMARATE 25 MG TABLET PO SCH ×4 (10:18→21:27)
[2022-03-12] MEDS: MAGNESIUM SULFATE/D5W 100 ML IV SCH ×2 (10:19→11:41)
[2022-03-12] MEDS: levETIRAcetam 500 MG/5 ML LIQUID UDC GT SCH ×2 (10:20→18:10)
[2022-03-12] MEDS: BENZTROPINE MESYLATE 1 MG TABLET PO SCH ×2 (10:20→18:10)
[2022-03-12] MEDS: PHENYTOIN 100 MG/4 ML UDC GT SCH ×2 (10:46→18:10)
--- NOTE | 2022-03-12 12:00 | NUR ---
Titrated O2 from 5L to 3L O2 sat 95%. Will continue to monitor.
--- NOTE | 2022-03-12 12:53 | NUR ---
Per MD, d/c Merrem abx, NGT and feeding. Will continue to monitor.
--- NOTE | 2022-03-12 18:45 | NUR ---
Titrated O2 to 2L NC. O2 sat is at 95%. Will continue to monitor. NGT was removed per MD order. Pt is calm and cooperating. D/C mittens and restrains. Will closely monitor.
--- NOTE | 2022-03-12 18:47 | NUR ---
Right IJ dressing changed. Tolerated it well.
[2022-03-12] MEDS: ATORVASTATIN 10 MG TABLET GT SCH (21:27)
[2022-03-12] MEDS: TERAZOSIN 5 MG CAPSULE PO SCH (21:27)
[2022-03-13] VITALS (14 sets, daily range): BP systolic 100–137; BP diastolic 60–85
[2022-03-13 04:57] LABS: HEMATOCRIT 37.7 % (36.7-47.1); MEAN CORPUSCULAR HEMOGLOBIN 30.9 uug (23.8-33.4); MEAN CORPUSCULAR VOLUME 87.3 fL (73.0-96.2); PLATELET COUNT (AUTO) 289 K/uL (152-348)
[2022-03-13 05:19] LABS: CARBON DIOXIDE 32 mmol/L (21-32); CHLORIDE 99 mmol/L (98-107); CREATININE 0.5 mg/dL (0.6-1.3); GLUCOSE 111 mg/dL (74-106); MAGNESIUM 1.9 mg/dL (1.8-2.4); PHOSPHOROUS 3.9 mg/dL (2.5-4.9); POTASSIUM 4.1 mmol/L (3.5-5.1); UREA NITROGEN, BLOOD 12 mg/dL (7-18)
--- NOTE | 2022-03-13 07:00 | NUR ---
Received pt. on 1 liter NC saturation above 94%, no tachypnea. AAOx2. follows commands, intermittently. sbp within desired limits. barboza to gravity. IV RIJ patent. Will continue to monitor.
[2022-03-13] MEDS: LACTULOSE 20 G/30 ML LIQUID UDC GT SCH ×3 (08:26→17:12)
[2022-03-13] MEDS: PANTOPRAZOLE ORAL SUSPENSION 40 MG SUSPDR.PKT GT SCH (08:26)
[2022-03-13] MEDS: QUETIAPINE FUMARATE 25 MG TABLET PO SCH ×4 (08:26→21:25)
[2022-03-13] MEDS: PHENYTOIN 100 MG/4 ML UDC GT SCH ×2 (08:27→17:12)
[2022-03-13] MEDS: BENZTROPINE MESYLATE 1 MG TABLET PO SCH ×2 (08:30→17:13)
[2022-03-13] MEDS: levETIRAcetam 500 MG/5 ML LIQUID UDC GT SCH (08:30)
[2022-03-13] MEDS: ENOXAPARIN SODIUM 40 MG/0.4 ML DISP.SYRIN SQ SCH (08:35)
[2022-03-13] MEDS: IV D5 1/2 NS 1000 ML 1,000 ML IV PRN (08:38)
--- NOTE | 2022-03-13 08:45 | NUR ---
Pt/ attempting to get out of bed unsupervised, this time found with feet dangling off the bed. Pt. educated on safety measures, at this time follow commands and easily redirected.
--- NOTE | 2022-03-13 10:55 | NUR ---
Attending Dr. Dieudonne Mendoza in the unit to see and examine pt. report given orders received and implemented.
--- NOTE | 2022-03-13 11:45 | NUR ---
Patient slightly restless and found with feet dangling off bed stack in between bed rails. Patient reposition in bed and comfort and safety measures implemented. patient easily redirected and for now back in bed.
--- NOTE | 2022-03-13 14:00 | NUR ---
ID physician Dr. Williamson in to examine and follow up on pt.
--- NOTE | 2022-03-13 14:20 | NUR ---
Pt's conservator in the unit to visit pt.
--- NOTE | 2022-03-13 16:55 | NUR ---
pt. remains attempting getting off bed unsupervised for safety 1step-mattress removed and scd's removed as well. Patient on/off attempting to get out of bed un-supervised.
--- NOTE | 2022-03-13 19:05 | NUR ---
Patient becoming increasingly distress continuously attempting to get out of bed unsupervised. Nursing supervisor cytogenetic laboratory day shift notified and aware of pt's potential need of a sitter once pt. transfer, as informed information will be endorse to incoming supervisor cytogenetic laboratory. Will continue to monitor.
--- NOTE | 2022-03-13 21:00 | NUR ---
patient incontinent of loose ,watery stool patient on lactulose .cleaned with soap and water changed soiled linens and gown .patient able to help in turning and repositioning . patient able to follow command.alert and awake .
--- NOTE | 2022-03-13 21:15 | NUR ---
due medication given and patient took medication with water.
[2022-03-13] MEDS: TERAZOSIN 5 MG CAPSULE PO SCH (21:23)
[2022-03-13] MEDS: ATORVASTATIN 10 MG TABLET GT SCH (21:24)
[2022-03-13] MEDS: levETIRAcetam 500 MG TABLET GT SCH (21:25)
--- NOTE | 2022-03-13 23:51 | NUR ---
pt is awake in bed awake calling for nurse, BIPAP IN PLACE ORDERED. O2SAT 99. PLEASE SEE NURSING FLOW RECORD. PATEINT REQUESTED SUCTIONING POINTING TO SUCTION CATHETER, REMOVE NAVA RO SUCFTION WITH UDE OF NASAL CANULA. PT TOLERATES MOUTHCARE PT ASKED TO REMOVE BIPAP. RT CALLED. PT MAINTAINED O2SAT 99 . MITTEN RESTRAINT RIGHT HAND. PATIR=ENT REASSURED.
[2022-03-14] VITALS: BP 132/81
--- NOTE | 2022-03-14 00:01 | NUR ---
afebrile temp 98.0 orally . patient in bed watching tv.
--- NOTE | 2022-03-14 00:30 | NUR ---
patient had another bm loose large amt ,changed soiled linens and gown . advised patient to call for help call light placed with in reach .
--- NOTE | 2022-03-14 01:56 | NUR ---
bed exit alarm was alarming found patient standing at the side of the bed ,advised patient to go back to bed and to call and used the call wheeler if he wants something needs reorientation and frequent education . bed alarm on at all times .
[2022-03-14] MEDS: MORPHINE SULFATE 2 MG/1 ML DISP.SYRIN IV PRN (02:18)
--- NOTE | 2022-03-14 02:21 | NUR ---
patient verbalized pain when asked unable to say where and unable to described levels of pain .given prn morphine for pain . see emar.
--- NOTE | 2022-03-14 03:30 | NUR ---
bath patient ,changed soiled linens and gown .barboza care done and oral care done .
--- NOTE | 2022-03-14 04:30 | NUR ---
am labs collected done via the right triple lumen central line . all ports patent and flused with normal saline q used .
--- NOTE | 2022-03-14 05:00 | NUR ---
patient had portable chest xray done by techician at [facility].
[2022-03-14 05:45] LABS: HEMATOCRIT 36.9 % (36.7-47.1); MEAN CORPUSCULAR HEMOGLOBIN 30.8 uug (23.8-33.4); MEAN CORPUSCULAR VOLUME 87.4 fL (73.0-96.2); PLATELET COUNT (AUTO) 299 K/uL (152-348)
[2022-03-14 05:49] VITALS: BP 115/76
[2022-03-14 06:23] LABS: ALANINE AMINOTRANSFERASE 218 U/L (16-63); ALKALINE PHOSPHATASE 128 U/L (50-136); ASPARTATE AMINOTRANSFERASE 130 U/L (15-37); BILIRUBIN,TOTAL 0.2 mg/dL (0.2-1.0); CARBON DIOXIDE 30 mmol/L (21-32); CHLORIDE 102 mmol/L (98-107); CREATININE 0.5 mg/dL (0.6-1.3); GLUCOSE 94 mg/dL (74-106); MAGNESIUM 1.9 mg/dL (1.8-2.4); PHOSPHOROUS 4.1 mg/dL (2.5-4.9); POTASSIUM 3.7 mmol/L (3.5-5.1); TOTAL PROTEIN, SERUM 6.5 g/dL (6.4-8.2); UREA NITROGEN, BLOOD 18 mg/dL (7-18)
[2022-03-14 08:00] VITALS: BP 114/88
[2022-03-14] MEDS: BENZTROPINE MESYLATE 1 MG TABLET PO SCH ×2 (08:35→17:10)
[2022-03-14] MEDS: LACTULOSE 20 G/30 ML LIQUID UDC GT SCH (08:35)
[2022-03-14] MEDS: PHENYTOIN 100 MG/4 ML UDC GT SCH (08:35)
[2022-03-14] MEDS: levETIRAcetam 500 MG TABLET GT SCH (08:35)
[2022-03-14] MEDS: QUETIAPINE FUMARATE 25 MG TABLET PO SCH ×3 (08:36→20:17)
[2022-03-14] MEDS: ENOXAPARIN SODIUM 40 MG/0.4 ML DISP.SYRIN SQ SCH (08:37)
[2022-03-14] MEDS ORDERED: PANTOPRAZOLE SODIUM 40 MG TABLET.DR PO SCH (08:46)
[2022-03-14] MEDS ORDERED: QUETIAPINE FUMARATE 25 MG TABLET GT SCH (11:02)
[2022-03-14] MEDS ORDERED: BENZTROPINE MESYLATE 1 MG TABLET GT SCH (11:02)
[2022-03-14] MEDS ORDERED: TERAZOSIN 5 MG CAPSULE GT SCH (11:03)
--- NOTE | 2022-03-14 14:04 | NUR ---
Per Dr. Abreu, to change the lactulose to one dose, 20 grams, daily.
[2022-03-14] MEDS ORDERED: LACTULOSE 20 G/30 ML LIQUID UDC PO SCH (14:45)
[2022-03-14] MEDS ORDERED: ACETAMINOPHEN 650 MG/20.3 ML LIQUID UDC PO PRN (16:49)
[2022-03-14] MEDS: PHENYTOIN SODIUM EXTENDED 100 MG CAPSULE.SA PO SCH (17:23)
--- NOTE | 2022-03-14 17:23 | NUR ---
Ok to remove IJ central line and barboza catheter per Dr. Abreu.
[2022-03-14 18:00] VITALS: BP 113/72
--- NOTE | 2022-03-14 19:30 | NUR ---
received pts. in bed awake alert no respiratory distress noted tolerating 02 nasal cannula at 2 liters/min rr 20 saturation 98 to 100% .medical surgical status ,awaiting room upstairs . no s/s/ of bleeding checked right IJ post central catheter site CDI .
[2022-03-14 20:00] VITALS: BP 112/74
[2022-03-14] MEDS: levETIRAcetam 500 MG TABLET PO SCH (20:16)
[2022-03-14] MEDS: ATORVASTATIN 10 MG TABLET PO SCH (20:16)
[2022-03-14] MEDS: TERAZOSIN 5 MG CAPSULE PO SCH (20:22)
[2022-03-14] MEDS: REMEDY ESSENTIAL ZINC PASTE 113 GM TP PRN (20:28)
--- NOTE | 2022-03-14 20:35 | NUR ---
took aramis medication with water ,assisted tolerated medication .
--- NOTE | 2022-03-14 20:35 | NUR ---
dr: jamaica came and aware patient in ccu but already med/surg patient .
--- NOTE | 2022-03-14 23:00 | NUR ---
RECEIVED PATIENT VIA W/C FROM CCU. PATIENT IS ALERT TO SELF. ASSISTED TO BED, MADE COMFORTABLE. BED ALARM ON. CALL LIGHT IN REACH. ALL NEEDS ATTENDED. WILL CONTINUE TO MONITOR AND ASSESS.
[2022-03-14 23:12] VITALS: BP 100/63
--- NOTE | 2022-03-14 23:45 | NUR ---
PATIENT ASLEEP IN BED. NO RESP. DISTRESS NOTED. BED ALARM ON. CALL LIGHT IN REACH. ALL NEEDS ATTENDED.
[2022-03-15 00:03] VITALS: BP 114/73
[2022-03-15 04:40] VITALS: BP 96/61
[2022-03-15] MEDS: PANTOPRAZOLE SODIUM 40 MG TABLET.DR PO SCH (06:06)
[2022-03-15] MEDS ORDERED: PANTOPRAZOLE ORAL SUSPENSION 40 MG SUSPDR.PKT GT SCH (07:00)
--- NOTE | 2022-03-15 08:00 | NUR ---
PATIENT A&O X 2. REORIENTED PT TO PLACE. PT ON ROOM AIR WITH SAT OF 90%. DR. ARBOLEDA NOTIFIED AND IS HERE TO SEE PT. BED ALARM ON. CALL LIGHT IN REACH. SEIZURE PRECAUTIONS IMPLEMENTED. SIDE RAILS PADDED.
[2022-03-15] MEDS: LACTULOSE 20 G/30 ML LIQUID UDC PO SCH (09:00)
[2022-03-15] MEDS: PHENYTOIN SODIUM EXTENDED 100 MG CAPSULE.SA PO SCH ×2 (09:03→17:19)
[2022-03-15] MEDS: BENZTROPINE MESYLATE 1 MG TABLET PO SCH ×2 (09:05→17:20)
[2022-03-15] MEDS: levETIRAcetam 500 MG TABLET PO SCH ×2 (09:05→20:34)
[2022-03-15] MEDS: QUETIAPINE FUMARATE 25 MG TABLET PO SCH ×4 (09:05→20:34)
[2022-03-15] MEDS: ENOXAPARIN SODIUM 40 MG/0.4 ML DISP.SYRIN SQ SCH (09:06)
--- NOTE | 2022-03-15 09:30 | NUR ---
NOTICED PT SEIZING PRESENTED BY JERKING AND DROOLING FOR 1-2 MINUTES. O2 SAT WAS AT 88-90%. PROVIDED O2 AT 2 LPM/NC. ATIVAN GIVEN. NEURO ASSESSMENT DONE. PT IS STABLE. SEIZURE PRECAUTION IMPLEMENTED. KEPT PT SAFE IN BED. Addendum: 03/15/22 at 1604 by SILVANO ARROYO RN VITAL SIGNS BP 121/74, HR 96, RR 18. PT ALSO HAD RIGHT ARM FLEXED AND HYPERTONIC MUSCLES THROUGH OUT HIS BODY. NO UNCONTROLLABLE URINATION AND BM NOTED. DR. DUMAS NOTIFIED.
[2022-03-15] MEDS: LORAZEPAM 2 MG/1 ML VIAL IV PRN (09:37)
--- NOTE | 2022-03-15 11:30 | NUR ---
Patient complained of chest pain. Pt reported muscle pain increased when inhaling and relieved when exhalinng No changed on tele noted. No ectopy on tele. BP 126/53. Monitored accordingly. Call light in reach. Addendum: 03/16/22 at 1604 by IVY RODRIGUEZ RN WRONG PATIENT
[2022-03-15 12:00] VITALS: BP 112/65
[2022-03-15 16:00] VITALS: BP 105/70
[2022-03-15] MEDS: ATORVASTATIN 10 MG TABLET PO SCH (20:34)
[2022-03-15] MEDS: TERAZOSIN 5 MG CAPSULE PO SCH (20:34)
[2022-03-15 21:36] VITALS: BP 121/71
[2022-03-16 04:48] VITALS: BP 108/64
[2022-03-16] MEDS: PANTOPRAZOLE SODIUM 40 MG TABLET.DR PO SCH (06:14)
[2022-03-16 06:51] LABS: HEMATOCRIT 38.4 % (36.7-47.1); MEAN CORPUSCULAR HEMOGLOBIN 31.7 uug (23.8-33.4); MEAN CORPUSCULAR VOLUME 87.6 fL (73.0-96.2); PLATELET COUNT (AUTO) 308 K/uL (152-348)
[2022-03-16 07:03] LABS: CREATININE 0.8 mg/dL (0.6-1.3); PHOSPHOROUS 3.3 mg/dL (2.5-4.9); POTASSIUM 3.7 mmol/L (3.5-5.1)
--- NOTE | 2022-03-16 08:00 | NUR ---
AWAKE ALERT AND COHERENT ANSWERS QUESTIONS APPROPRIATELY, DENIES PAIN OR SOB. INDEPENDENT WITH MEALS. NO SS OF ASPIRATION
[2022-03-16] MEDS: LACTULOSE 20 G/30 ML LIQUID UDC PO SCH (09:00)
[2022-03-16] MEDS: BENZTROPINE MESYLATE 1 MG TABLET PO SCH ×2 (09:28→17:38)
[2022-03-16] MEDS: ENOXAPARIN SODIUM 40 MG/0.4 ML DISP.SYRIN SQ SCH (09:29)
[2022-03-16] MEDS: QUETIAPINE FUMARATE 25 MG TABLET PO SCH ×4 (09:29→22:11)
[2022-03-16] MEDS: PHENYTOIN SODIUM EXTENDED 100 MG CAPSULE.SA PO SCH ×2 (09:29→17:38)
[2022-03-16] MEDS: levETIRAcetam 500 MG TABLET PO SCH ×2 (09:29→22:11)
[2022-03-16] MEDS ORDERED: ATOR10TA PO (11:48)
[2022-03-16] MEDS ORDERED: RIFA550T PO (11:48)
[2022-03-16] MEDS ORDERED: LEVE500T9 PO (11:48)
[2022-03-16 12:00] VITALS: BP 106/72
--- NOTE | 2022-03-16 12:00 | NUR ---
NO ACUTE CHANGE FROM MORNING ASSESSMENT, CLOSELY MONITORED FOR SEIZURE
[2022-03-16 16:00] VITALS: BP 110/64
--- NOTE | 2022-03-16 18:10 | NUR ---
AWAITING PLACEMENT, NO FURTHER SEIZURE NOTED
[2022-03-16 20:00] VITALS: BP 123/86
[2022-03-16] MEDS: ATORVASTATIN 10 MG TABLET PO SCH (22:11)
[2022-03-16] MEDS: TERAZOSIN 5 MG CAPSULE PO SCH (22:12)
[2022-03-17 04:00] VITALS: BP 113/76
--- NOTE | 2022-03-17 06:01 | NUR ---
Received to care, lying in bed, pleasant upon approach. Remains seizure free. Seizure precautions maintained throughout shift. Monitored closely for safety. Assisted as needed. Call light in reach.
[2022-03-17] MEDS: PANTOPRAZOLE SODIUM 40 MG TABLET.DR PO SCH (06:23)
[2022-03-17] MEDS: LACTULOSE 20 G/30 ML LIQUID UDC PO SCH (09:35)
[2022-03-17] MEDS: BENZTROPINE MESYLATE 1 MG TABLET PO SCH ×2 (09:35→17:26)
[2022-03-17] MEDS: PHENYTOIN SODIUM EXTENDED 100 MG CAPSULE.SA PO SCH ×2 (09:35→17:26)
[2022-03-17] MEDS: levETIRAcetam 500 MG TABLET PO SCH ×2 (09:35→21:11)
[2022-03-17] MEDS: QUETIAPINE FUMARATE 25 MG TABLET PO SCH ×4 (09:35→21:12)
[2022-03-17] MEDS: ENOXAPARIN SODIUM 40 MG/0.4 ML DISP.SYRIN SQ SCH (09:37)
[2022-03-17 12:00] VITALS: BP 110/72
[2022-03-17 16:00] VITALS: BP 128/56
--- NOTE | 2022-03-17 19:30 | NUR ---
Received patient lying in bed. AAOx2 with periods of confusion and forgetfulness. Able to make needs known and follow simple direction. In no apparent distress. Denies any pain or SOB. IV site on left upper arm intact and patent. Needs assessed and attended to. Safety measure initiated and call light within reached.
--- NOTE | 2022-03-17 19:30 | NUR ---
Received patient lying in bed. Awake but confused and disoriented. In no apparent distress. No signs or symptoms if pain or SOB noted. O2 sat 94% on RA. Right upper arm midline and right FA PIV intact and patent. IVF infusing via midline. Downs catheter intact and draining via gravity. Turned and repositioned for comfort. Safety measure initiated and call light within reached. Addendum: 03/17/22 at 2201 by FLORA LICEA RN wrong patient
[2022-03-17 20:00] VITALS: BP 141/82
[2022-03-17] MEDS: TERAZOSIN 5 MG CAPSULE PO SCH (21:12)
[2022-03-17] MEDS: ATORVASTATIN 10 MG TABLET PO SCH (21:12)
[2022-03-18 04:00] VITALS: BP 128/65
--- NOTE | 2022-03-18 05:31 | NUR ---
AAOx2 with confusion and forgetfulness. In no acute distress. Due meds given and taken. Denies any pain or SOB. IV site on left upper arm intact and patent. Needs attended to and met. Safety measure maintained and call light within reached.
[2022-03-18] MEDS: PANTOPRAZOLE SODIUM 40 MG TABLET.DR PO SCH (06:08)
[2022-03-18] MEDS: LACTULOSE 20 G/30 ML LIQUID UDC PO SCH (08:35)
[2022-03-18] MEDS: PHENYTOIN SODIUM EXTENDED 100 MG CAPSULE.SA PO SCH ×2 (08:43→17:24)
[2022-03-18] MEDS: BENZTROPINE MESYLATE 1 MG TABLET PO SCH ×2 (08:44→17:23)
[2022-03-18] MEDS: levETIRAcetam 500 MG TABLET PO SCH (08:44)
[2022-03-18] MEDS: QUETIAPINE FUMARATE 25 MG TABLET PO SCH ×3 (08:44→17:24)
[2022-03-18] MEDS: ENOXAPARIN SODIUM 40 MG/0.4 ML DISP.SYRIN SQ SCH (08:45)
--- NOTE | 2022-03-18 11:45 | NUR ---
Received patient lying in bed watching TV. AAOx2-3 with periods of forgetfulness. Able to make needs known and follow simple directions. In no apparent distress. Denies any pain or SOB remain at room air. IV site on left upper arm intact and patent. Needs assessed and attended, up with PT ambulating in the hallway with FWW. Safety measure in place and call light within reached.
[2022-03-18 16:00] VITALS: BP 134/88
--- NOTE | 2022-03-18 20:05 | NUR ---
Report given by AM shift RN to [facility] nurse and transportation. IV access on FAY removed. Belongings sent with pt. Discharged in stable condition.
== END 2022-03-18 22:07 | DRG 207 ==
LOC: ER 22:12 → CCU 03-03 03:30 → TRANSITION 03-06 08:43 → CCU 03-07 21:46 → MEDSURG3 03-14 23:30
PROVIDERS: ADMIT Nurse Practitioner Family; ATTEND Nurse Practitioner Acute Care
PROC: 5A1955Z Respiratory Ventilation, Greater than 96 Consecutive Hours (ICD-10-PCS; principal; 2022-03-03)
PROC: 0BH17EZ Insertion of Endotracheal Airway into Trachea, Via Natural or Artificial Opening (ICD-10-PCS; 2022-03-03)
PROC: 02H633Z Insertion of Infusion Device into Right Atrium, Percutaneous Approach (ICD-10-PCS; 2022-03-03)
PROC: B543ZZA Ultrasonography of Right Jugular Veins, Guidance (ICD-10-PCS; 2022-03-03)
DX: J69.0 Pneumonitis due to inhalation of food and vomit (principal); R53.2 Functional quadriplegia; J96.01 Acute respiratory failure with hypoxia; G92.8 Other toxic encephalopathy; E72.20 Disorder of urea cycle metabolism, unspecified; D68.59 Other primary thrombophilia; J98.11 Atelectasis; J81.1 Chronic pulmonary edema; F19.239 Other psychoactive substance dependence with withdrawal, unspecified; G40.909 Epilepsy, unspecified, not intractable, without status epilepticus; E87.6 Hypokalemia; E66.9 Obesity, unspecified; E78.5 Hyperlipidemia, unspecified; I10 Essential (primary) hypertension; Z87.820 Personal history of traumatic brain injury; Z74.09 Other reduced mobility; Z68.29 Body mass index [BMI] 29.0-29.9, adult; R16.2 Hepatomegaly with splenomegaly, not elsewhere classified; R60.1 Generalized edema; T50.995A Adverse effect of other drugs, medicaments and biological substances, initial encounter; Y92.099 Unspecified place in other non-institutional residence as the place of occurrence of the external cause; F31.9 Bipolar disorder, unspecified
CPT/HCPCS: 36415; 36600; 70450; 71045; 71275; 72125; 80164; 83605; 83735; 84100; 84443; 84478; 84484; 85025; 85730; 86803; 87040; 87070; 87806; 93005; 94002; 94003; 94640; 94660; 97161; 97535-GO-CO; 99082-TC; A4663; A6209; G0378; G0480; J0330; J1650; J1953; J2060; J2185; J2270; J3475; J3480; J3490; J8499; Q9967

== ENCOUNTER 2022-04-16 20:33 | Inpatient (IN) | payer MEDICARE ==
[~2022-04-16] VITALS: Ht 170.2 cm; Wt 77.1 kg
[~2022-04-16 20:33] MED LIST: ATOR10TA PO; BENZ1TAB7 PO; LEVE500T9 PO; PHEN100C4 PO; QUET25TA PO; RIFA550T PO; TERA10CA4 PO
--- NOTE | 2022-04-16 20:40 | NUR ---
Pt bib ra 107 from an assisted living c/o generalized weakness, dizziness, nausea, vomiting x 1 day, pt was given zofran 4mg lighter captain. Pt has a traumatic brain injury, alert and oriented x 3, normally wheelchair bound.
[2022-04-16] MEDS ORDERED: IV NORMAL SALINE 1000 ML BAG IV ONE (20:45)
--- NOTE | 2022-04-16 20:45 | NUR ---
Dr. Meeks on bedside for MSE.
[2022-04-16 21:12] LABS: HEMATOCRIT 45.1 % (36.7-47.1); MEAN CORPUSCULAR HEMOGLOBIN 30.4 uug (23.8-33.4); MEAN CORPUSCULAR VOLUME 88.2 fL (73.0-96.2); PLATELET COUNT (AUTO) 292 K/uL (152-348)
[2022-04-16 21:21] LABS: CARBON DIOXIDE 29 mmol/L (21-32); CHLORIDE 105 mmol/L (98-107); CREATININE 0.8 mg/dL (0.6-1.3); GLUCOSE 112 mg/dL (74-106); POTASSIUM 3.9 mmol/L (3.5-5.1); UREA NITROGEN, BLOOD 9 mg/dL (7-18)
[2022-04-16 21:28] LABS: ALANINE AMINOTRANSFERASE 40 U/L (16-63); ALKALINE PHOSPHATASE 108 U/L (50-136); ASPARTATE AMINOTRANSFERASE 17 U/L (15-37); BILIRUBIN,DIRECT 0.1 mg/dL (0.0-0.2); BILIRUBIN,TOTAL 0.1 mg/dL (0.2-1.0); LIPASE 74 U/L (73-393); MAGNESIUM 2.1 mg/dL (1.8-2.4); TOTAL PROTEIN, SERUM 7.1 g/dL (6.4-8.2)
[2022-04-16] MEDS ORDERED: LACTULOSE 20 G/30 ML LIQUID UDC ONE (23:55)
[2022-04-16] MEDS ORDERED: DIVA500T2 PO (23:56)
[2022-04-16] MEDS ORDERED: PHEN100C4 PO (23:56)
[2022-04-16] MEDS ORDERED: PARO40TA4 PO (23:56)
[2022-04-17] MEDS ORDERED: LACTULOSE 20 G/30 ML LIQUID UDC PO ONE
--- NOTE | 2022-04-17 00:07 | NUR ---
call to [facility] suzanne moran library acquisitions technician for admission.
--- NOTE | 2022-04-17 00:26 | NUR ---
second [facility] panel call to suzanne moran for admission.
--- NOTE | 2022-04-17 00:46 | NUR ---
Luis Manuel moran panel [facility] doctor called back and spoke with Dr. Meeks.
--- NOTE | 2022-04-17 03:30 | NUR ---
Admitting followed up at [facility] for admission. Still pending. Awaiting for call back for admission.
--- NOTE | 2022-04-17 04:00 | NUR ---
Patient asleep in bed. Appears comfortable. In no acute distress.
--- NOTE | 2022-04-17 05:35 | NUR ---
Admitting called [facility] and spoke to Villa, to follow up re: transfer, Vlila stated that she will call [facility] back.
--- NOTE | 2022-04-17 05:45 | NUR ---
Patient requested for something to eat and provided sandwich and juice.
--- NOTE | 2022-04-17 06:55 | NUR ---
Report given to day shift nurse Zach.
--- NOTE | 2022-04-17 08:45 | NUR ---
Patient is resting comfortably on gurney with eyes closed, NAD, pending accepting nurse & assigned bed at [facility].
--- NOTE | 2022-04-17 09:04 | NUR ---
Patient is eating hot breakfast with good appetite.
[2022-04-17] MEDS ORDERED: BENZTROPINE MESYLATE 0.5 MG TABLET ONE (09:12)
[2022-04-17] MEDS ORDERED: DIVALPROEX 500 MG TABLET.DR PO ONE (09:13)
[2022-04-17] MEDS ORDERED: QUETIAPINE FUMARATE 25 MG TABLET ONE ×2 (09:14→13:03)
[2022-04-17] MEDS ORDERED: levETIRAcetam 250 MG TABLET ONE (09:14)
[2022-04-17] MEDS ORDERED: PHENYTOIN SODIUM EXTENDED 100 MG CAPSULE.SA PO ONE (09:14)
[2022-04-17] MEDS: DIVALPROEX 500 MG TABLET.DR PO SCH ×2 (09:24→17:16)
[2022-04-17] MEDS: PHENYTOIN SODIUM EXTENDED 100 MG CAPSULE.SA PO SCH ×2 (09:24→17:16)
[2022-04-17] MEDS: BENZTROPINE MESYLATE 1 MG TABLET PO SCH ×2 (09:24→17:16)
[2022-04-17] MEDS: QUETIAPINE FUMARATE 25 MG TABLET PO SCH ×4 (09:24→20:24)
[2022-04-17] MEDS: levETIRAcetam 500 MG TABLET PO SCH ×2 (09:24→20:24)
[2022-04-17] MEDS: PAROXETINE HCL 20 MG TABLET PO SCH (09:44)
--- NOTE | 2022-04-17 10:37 | NUR ---
Patient was seen walking from room 2A to bathroom, unassisted, +steady gait, NAD, still waiting for an accepting medical-surgical burse & assigned bed from [facility]. ER registration staff is working on this transfer based on patient's insurance.
--- NOTE | 2022-04-17 12:15 | NUR ---
Patient is seen walking slowly to bathroom, unsteady gait at the moment, assisted patient and reminded patient to call for help as needed.
--- NOTE | 2022-04-17 12:49 | NUR ---
Patient is eating hot lunch with good appetite, NAD.
--- NOTE | 2022-04-17 14:55 | NUR ---
Patient is seen changing to his street clothes and wants to go home, MD notified.
--- NOTE | 2022-04-17 15:02 | NUR ---
Patient said to our ER doctor that he was just preparing for admission to another hospital hence he started changing to his street clothes. Patient verbally consented to be admitted and not go back home.
[2022-04-17] MEDS ORDERED: IV NS 1000 ML 1,000 ML IV PRN ×2 (17:15→19:30)
[2022-04-17] MEDS ORDERED: ACETAMINOPHEN 325 MG TABLET PO PRN ×2 (17:15→19:30)
[2022-04-17] MEDS ORDERED: MAGNESIUM HYDROXIDE 30 ML LIQUID UDC PO PRN (17:15)
[2022-04-17] MEDS ORDERED: REMEDY ESSENTIAL ZINC PASTE 113 GM TP PRN ×2 (17:15→19:30)
[2022-04-17] MEDS ORDERED: ONDANSETRON 4 MG/2 ML VIAL IV PRN ×2 (17:15→19:30)
[2022-04-17] MEDS ORDERED: ZOLPIDEM 5 MG TABLET PO PRN (17:15)
[2022-04-17] MEDS ORDERED: levoFLOXacin 500 MG/D5W 500 MG in PREMIXED 1 EACH IV ONE (18:00)
--- NOTE | 2022-04-17 19:30 | NUR ---
Pt is refusing IV fluids at this time.
[2022-04-17 20:00] VITALS: BP 118/71
[2022-04-17] MEDS: TERAZOSIN 5 MG CAPSULE PO SCH (20:24)
[2022-04-17] MEDS: ATORVASTATIN 10 MG TABLET PO SCH (20:24)
[2022-04-17] MEDS: ENOXAPARIN SODIUM 40 MG/0.4 ML DISP.SYRIN SQ SCH (20:26)
[2022-04-18 04:43] VITALS: BP 111/76
[2022-04-18] MEDS: PANTOPRAZOLE SODIUM 40 MG TABLET.DR PO SCH ×2 (06:09→06:11)
--- NOTE | 2022-04-18 06:11 | NUR ---
Pt refused protonix and still refusing IV fluids
[2022-04-18 07:17] LABS: HEMATOCRIT 43.6 % (36.7-47.1); MEAN CORPUSCULAR HEMOGLOBIN 30.4 uug (23.8-33.4); MEAN CORPUSCULAR VOLUME 88.3 fL (73.0-96.2); PLATELET COUNT (AUTO) 247 K/uL (152-348)
[2022-04-18 07:34] LABS: BILIRUBIN,TOTAL 0.1 mg/dL (0.2-1.0); CREATININE 0.8 mg/dL (0.6-1.3); MAGNESIUM 1.8 mg/dL (1.8-2.4); PHOSPHOROUS 3.6 mg/dL (2.5-4.9); POTASSIUM 3.8 mmol/L (3.5-5.1); TOTAL PROTEIN, SERUM 6.3 g/dL (6.4-8.2)
[2022-04-18] MEDS: PHENYTOIN SODIUM EXTENDED 100 MG CAPSULE.SA PO SCH ×2 (08:16→16:15)
[2022-04-18] MEDS: DIVALPROEX 500 MG TABLET.DR PO SCH ×2 (08:16→16:15)
[2022-04-18] MEDS: QUETIAPINE FUMARATE 25 MG TABLET PO SCH ×4 (08:17→20:24)
[2022-04-18] MEDS: PAROXETINE HCL 20 MG TABLET PO SCH (08:17)
[2022-04-18] MEDS: BENZTROPINE MESYLATE 1 MG TABLET PO SCH ×2 (08:17→16:15)
[2022-04-18] MEDS: LACTULOSE 20 G/30 ML LIQUID UDC PO SCH (08:20)
[2022-04-18] MEDS ORDERED: levETIRAcetam IV 1,000 MG in IV DEXTROSE 5% 100 ML IV SCH (09:00)
[2022-04-18] MEDS ORDERED: NORMAL SALINE IV SCH ×4 (09:00)
[2022-04-18] MEDS ORDERED: PANTOPRAZOLE SODIUM 40 MG VIAL IV SCH (09:00)
[2022-04-18] MEDS ORDERED: LEVOCARNITINE IV SCH ×4 (09:00)
--- NOTE | 2022-04-18 14:45 | NUR ---
pt refused the us md made aware
[2022-04-18 16:00] VITALS: BP 121/84
--- NOTE | 2022-04-18 17:46 | NUR ---
pt refused the iv antibiotic all the contraindications try to explain to the pt pt said he do not need it charge nurse and md made aware
[2022-04-18] MEDS ORDERED: levoFLOXacin 500 MG/D5W 500 MG in PREMIXED 1 EACH IV SCH (18:00)
[2022-04-18] MEDS ORDERED: levoFLOXacin 500 MG/D5W 500 MG in PREMIXED 1 EACH IV ONE (18:00)
[2022-04-18] MEDS: ATORVASTATIN 10 MG TABLET PO SCH (20:24)
[2022-04-18 20:36] VITALS: BP 121/84
[2022-04-18] MEDS: TERAZOSIN 5 MG CAPSULE PO SCH (20:36)
[2022-04-18] MEDS: levETIRAcetam 500 MG TABLET PO SCH (20:36)
[2022-04-18] MEDS: ENOXAPARIN SODIUM 40 MG/0.4 ML DISP.SYRIN SQ SCH (20:39)
--- NOTE | 2022-04-18 20:40 | NUR ---
PATIENT ATTEMPTED TO LEAVE UNIT, WEARING REGULAR CLOTHING. PATIENT KEPT REFUSING TO GO BACK TO HIS ROOM. PROJECT PRODUCTION ENGINEER WAS CALLED FOR ASSISTANCE. PATIENT CALMED DOWN AND IN BED.
--- NOTE | 2022-04-18 20:44 | NUR ---
Pt.is angry,irritable at this time. Expressing his desire to go home/downstairs. Pt.took his bedtime meds. PO but refused Lovenox SQ despite explanation of risks vs.benefits x3. Pt. is verbalizing that there's nothing wrong with him/he doesn't need to be here in the hosp. Refused to be re-directed.
[2022-04-19 04:00] VITALS: BP 110/62
--- NOTE | 2022-04-19 06:37 | NUR ---
PATIENT SLEPT THROUGH THE NIGHT, WITH FEW EPISODES OF AGGRESSION AND INAPPROPRIATE CURSING TOWARDS NURSING STAFF. COMPLIANT WITH HS PO MEDICATIONS BUT REFUSED ENOXAPARIN, BLOOD DRAW AND PROTONIX. SAFETY PRECAUTIONS MAINTAINED.
[2022-04-19] MEDS: PANTOPRAZOLE SODIUM 40 MG TABLET.DR PO SCH (06:51)
[2022-04-19] MEDS: levETIRAcetam 500 MG TABLET PO SCH (08:10)
[2022-04-19] MEDS: PHENYTOIN SODIUM EXTENDED 100 MG CAPSULE.SA PO SCH (08:10)
[2022-04-19] MEDS: LACTULOSE 20 G/30 ML LIQUID UDC PO SCH (08:11)
[2022-04-19] MEDS: BENZTROPINE MESYLATE 1 MG TABLET PO SCH (08:11)
[2022-04-19] MEDS: PAROXETINE HCL 20 MG TABLET PO SCH (08:11)
[2022-04-19] MEDS: QUETIAPINE FUMARATE 25 MG TABLET PO SCH ×2 (08:11→12:12)
[2022-04-19] MEDS: DIVALPROEX 500 MG TABLET.DR PO SCH (08:11)
--- NOTE | 2022-04-19 10:30 | NUR ---
pt refused to do the lab and ginny serrano md made aware
[2022-04-19] MEDS ORDERED: PANT40TA49 PO (10:52)
[2022-04-19] MEDS ORDERED: LEVE500T9 PO (10:52)
[2022-04-19] MEDS ORDERED: LACT10SO7 PO (10:52)
--- NOTE | 2022-04-19 13:58 | NUR ---
dc orders received noted and carried out,dc instruction and education given to the pt.pt refused to sign the paper. pt left the facility via ambulances with all his belonging in stable condition
== END 2022-04-19 13:40 | DRG 441 ==
LOC: ER 20:33 → MEDSURG3 04-17 15:40
PROVIDERS: ADMIT Nurse Practitioner Acute Care; ATTEND Nurse Practitioner Acute Care
DX: K72.00 Acute and subacute hepatic failure without coma (principal); G92.8 Other toxic encephalopathy; E78.5 Hyperlipidemia, unspecified; F31.9 Bipolar disorder, unspecified; G31.84 Mild cognitive impairment of uncertain or unknown etiology; G40.909 Epilepsy, unspecified, not intractable, without status epilepticus; N40.0 Benign prostatic hyperplasia without lower urinary tract symptoms; Z87.820 Personal history of traumatic brain injury; I10 Essential (primary) hypertension; R53.1 Weakness; Z20.822 Contact with and (suspected) exposure to COVID-19
CPT/HCPCS: 36415; 71045; 83605; 83690; 83735; 84100; 84484; 85025; 85730; 93005; 97161; A4663; G0378; J1650; J1953; J1955; J1956; J7040